=== PATIENT | female | born 1955 | race Caucasian/White ===

== ENCOUNTER 2018-09-07 06:23 | Inpatient (IN) ==
--- NOTE | 2018-08-24 12:26 | History & Physical Report ---
Date of Service August 24, 2018 Date of Surgery: 09/07/18 Assessment & Plan (1) Degenerative arthritis of knee, bilateral: Risks and benefits of procedure discussed in detail today, patient would like to proceed with bilateral TKAs @ [facility] as scheduled. will obtain medical clearance prior to surgery as well as obtain PATs at [facility]. Will place on Xarelto x 1 month post op, f/u 2 weeks post op for routine post-operative care and xray, sooner if having any problems. will make arrangements for HHPT vs rehab at the time of discharge. History of Present Illness Chief Complaint: bilateral knee pain Primary Care Provider: Austin White MD Ms Haynes is a 62 year old female who complains of bilateral knee pain, presents for pre-op for bilateral total knee replacements on 09-07-18. She states that the symptoms have been chronic non-traumatic. The symptoms occur constantly with intermittent worsening. Currently the patient states that the symptoms are moderate-severe. The pain is described as aching, discomforting and throbbing. The symptoms are aggravated by ascending stairs, descending stairs, daily activities, movement, walking, sleeping on the affected side, kneeling, first steps while awake and repetitive activities. Kristie states that the symptoms are relieved by no specific activity. She is also experiencing decreased mobility, crepitus, limping, joint pain, pain after activity and stiffness. The patient has had a previous x-ray and MRI. Prior NSAIDs include naproxen. She has been treated with Pt. has had Cortisone and Visco in the past on the right and left side equally. Pt. lives in 2 story [facility] style home with her . Pt. main living area is 1 floor with no need to ambulate stairs. Pt. is retired Allergies Allergy/AdvReac Type Severity Reaction Status Date / Time No Known Allergies Allergy Verified 08/17/18 13:38 Home Medications Home Medications Medication Instructions Recorded Confirmed Type aripiprazole [Abilify] 5 mg PO QAM 08/17/18 08/17/18 History bupropion HCl 300 mg PO QAM 08/17/18 08/17/18 History cholecalciferol (vitamin D3) 2,000 unit PO QAM 08/17/18 08/17/18 History [Vitamin D3] furosemide 40 mg PO QAM 08/17/18 08/17/18 History levothyroxine 50 mcg PO QAM 08/17/18 08/17/18 History naproxen sodium 440 mg PO QAM 08/17/18 08/17/18 History potassium chloride 10 meq PO BID 08/17/18 08/17/18 History sumatriptan succinate [Imitrex] 1 tab PO UD PRN 08/17/18 08/17/18 History venlafaxine [Effexor XR] 75 mg PO QAM 08/17/18 08/17/18 History Past Med/Surg History Medical History Anemia HX Depression MAJOR DEPRESSIVE DISORDER Hypothyroidism Migraine HX Osteoarthritis Raynaud disease Thoracic aortic aneurysm Surgical History H/O foot surgery BUNIONECTOMY R/L History of gastric bypass 2002 History of hysterectomy OVARIES REMAIN History of repair of rotator cuff RIGHT Social History Preferred Language: Iranian Communication Ability: Effective Drill Presser Required: No Beliefs That Will Affect Care: None Current Living Situation: Spouse and Family Other Information That Helps Us Care for You: No Feels Safe at Home: Yes Safety Concerns: Feels Safe At This Time Smoking Status: Former smoker Hx Alcohol Use: Yes (ON OCC) Hx Substance Use: No Review of Systems All systems reviewed & are unremarkable except as noted in HPI & below Constitutional: no fever, no chills and no sweats Respiratory: no cough and no dyspnea Cardiovascular: no chest pain, no dyspnea and no orthopnea Gastrointestinal: no nausea and no vomiting Musculoskeletal: as per Subjective / HPI Integumentary: no rash and no lesions Physical Exam Vital Signs (Past 24 Hours): Ht: 5ft 8inches Wt: 86kg BP: 122/76 HR: 72 Constitutional: WD/WN, vitals as above no acute distress Respiratory: normal respiratory effort, lungs clear to auscultation no respiratory distress, no labored breathing and does not use accessory muscles Cardiovascular: RRR, no murmur, no edema Gastrointestinal (Abdomen): normal bowel sounds, soft, nontender, no hepatosplenomegaly Musculoskeletal: Bilateral knee Physical exam Overall patient has neutral alignment bilaterally, there is no atrophy or ecchymosis noted, she does have +2 suprapatellar effusion in both of her knees, she has tenderness to both medial and lateral joint lines to her right knee, more lateral tenderess to both knees. negative patellar apprehension, she does have crepitation noted to both knees with active ROM. bilateral knees stable to valgus and varus stress, shahnaz negative, posterior drawer negative. Range of motion right knee 0/3/110, left knee 0/3/115. her lower extremities are neurovascularly intact, calf soft and non tender, DP pulse +2 bilaterally. Skin: no rashes, warm and dry Results & Data Diagnostic Findings Bilateral knee films from 08/06/18 showing advanced degenerative changes bilateral knees, greatest lateral compartments and patellofemoral joints, showing joint space narrowing, osteophyte formation and subchondral sclerosis. no acute bony pathology noted. no loose bodies.
--- NOTE | 2018-08-24 13:40 | Anesthesiology Consultation ---
Date of Service August 24, 2018 Assessment & Plan (1) Encounter for pre-operative examination: - Discussed B/L versus staged TKA with patient; patient wishes to proceed with B/L TKA. - PCP= 08/27/18= Possible ascending aorta enlargement on preop CXR. Noted by PCP, chest CT ordered. "Based on her condition today I do not see any contraindication to her anticipated surgery." Chest CT done 08/30/18 noting pulmonary nodule and mild acending thoracic ectasia- "neither findings will constitute any contraindication to her anticipated surgery and we can proceed as scheduled." Chart Review Chart Review: Patient seen in Pre Admission Testing Teaching & Discussion Pre-Anesthesia Teaching/Discussion Notes: Instructed NPO after midnight before surgery,except medications with 15 cc of water. Medication instructions provided according to the PAT guidelines. History Surgery Operation Date: 09/07/18 10:35 Proposed Procedures p Bilateral Total Knee Arthroplasty - Zay Nevarez DO Height/Weight Height: 5 ft 8 in Weight: 90.4 kg Allergies Allergy/AdvReac Type Severity Reaction Status Date / Time No Known Allergies Allergy Verified 08/17/18 13:38 Medications Home Medications Medication Instructions Recorded Confirmed Last Taken aripiprazole [Abilify] 5 mg PO QAM 08/17/18 08/17/18 Unknown bupropion HCl 300 mg PO QAM 08/17/18 08/17/18 Unknown cholecalciferol (vitamin D3) 2,000 unit PO QAM 08/17/18 08/17/18 Unknown [Vitamin D3] furosemide 40 mg PO QAM 08/17/18 08/17/18 Unknown levothyroxine 50 mcg PO QAM 08/17/18 08/17/18 Unknown naproxen sodium 440 mg PO QAM 08/17/18 08/17/18 Unknown potassium chloride 10 meq PO BID 08/17/18 08/17/18 Unknown sumatriptan succinate [Imitrex] 1 tab PO UD PRN 08/17/18 08/17/18 Unknown venlafaxine [Effexor XR] 75 mg PO QAM 08/17/18 08/17/18 Unknown Past Medical History Medical History Anemia Depression History of hypertension MEDS DISCONTINUED S/P GASTRIC BYPASS/WEIGHT LOSS Hypothyroidism Migraine Osteoarthritis Pulmonary nodule Raynaud disease Thoracic aortic aneurysm MILD ASCENDING THORACIC AORTA ECTASIA Past Surgical History Surgical History H/O foot surgery B/L BUNIONECTOMY History of gastric bypass 2001 S/P NET 70 POUND WEIGHT LOSS History of hysterectomy History of repair of rotator cuff RIGHT Past Anesthesia History No Hx of Anesthesia Complications and No Family Hx of Anesthesia Complications History of PONV No Motion Sickness Screening History of Motion Sickness: No Social History Smoking Status: Former smoker Do You Dip or Chew Tobacco: No Smoking End Date: QUIT 40 YEARS AGO; LIGHT USE IN 20'S Hx Alcohol Use: Yes (ON OCC) Alcohol type: wine alcohol intake frequency: a few times a month Hx Substance Use: No substance use type: does not use Exercise / Class Metabolic Activity II 4-5 Yardwork/Stairs/Walk up hill (DECREASED ACTIVITY IN SETTING OF INCREASING KNEE PAIN) Review of Systems Patient denies chest pain, shortness of breath, dyspnea on exertion, cough, wheezing, palpitations. Physical Exam Vital Signs VITALS BP 107/68 P 101 TEMP 98.8 SP02 96%RA RESP 20 PHYSICAL Full neck and c-spine range of motion. Full TMJ range of motion. TMD 3.5 finger breaths Mallampati Score 2 Dentition: partials on upper/lower Lungs: clear throughout to auscultation Cardiac: regular rate and rhythm, no murmurs noted Spine: normal Carotid arteries: negative bruit Extremities: no edema Testing Electrocardiogram Date: 10/30/17 SR at 64bpm. LAE. Chest X-Ray Date: 08/24/18 Possible enlargement of the ascending aorta. This would be better depicted with CT. Otherwise no acute cardiopulmonary disease (report sent to PCP for their review) Echocardiogram Date: 03/06/17 LVEF 55-60%. Mild MR/TR. Lipomatous septal hypertrophy. Grade I DD. Aortic root normal. Ascending aorta is normal at 3.8cm. Stress Test Date: 03/06/17 Type: nuclear No significant ischemia/infarction on stress EKG/ECHO. LVEF 72%. 87%MPHR. Other Testing Chest CT= 08/30/18= 3 mm right upper lobe pulmonary nodule. In a low risk patient, current recommendations indicate no need for further follow-up. Mild ectasia of the ascending thoracic aorta which measures 39 mm at the level of the main pulmonary artery Laboratory Results 08/24/18 14:04 08/24/18 14:04 Blood Type O Positive 08/24/18 14:04 Antibody Screen NEGATIVE 08/24/18 14:04 PT 10.7 Seconds (9.0-12.0) 08/24/18 14:04 INR 1.0 (0.9-1.1) 08/24/18 14:04 APTT 27.8 Seconds (21.0-31.0) 08/24/18 14:04 Urine Color Yellow 08/24/18 14:04 Urine Appearance Clear (Clear) 08/24/18 14:04 Urine pH 5.0 (4.5-7.5) 08/24/18 14:04 Ur Specific Jber 1.016 (1.000-1.030) 08/24/18 14:04 Urine Protein Negative (Negative) 08/24/18 14:04 Urine Glucose (UA) Negative (Negative) 08/24/18 14:04 Urine Ketones Negative (Negative) 08/24/18 14:04 Urine Nitrite Negative (Negative) 08/24/18 14:04 Ur Leukocyte Esterase Negative (Negative) 08/24/18 14:04 08/24/18 14:04 Urine Culture - Final Urine,Clean Catch More than three types of organisms present, all low counts mixed probable skin roseanna. No further identifications or sensitivities to follow.
--- NOTE | 2018-08-24 13:59 | PAT Medication Instructions ---
Medication Instructions Date of Service August 24, 2018 Home Medications aripiprazole [Abilify] 5 mg PO QAM bupropion HCl 300 mg PO QAM cholecalciferol (vitamin D3) 2,000 unit PO QAM furosemide 40 mg PO QAMn levothyroxine 50 mcg PO QAM naproxen sodium 440 mg PO QAM potassium chloride 10 meq PO BID sumatriptan succinate [Imitrex] 1 tab PO UD PRN venlafaxine [Effexor XR] 75 mg PO QAM ASK your surgeon for instructions naproxen sodium 440 mg PO QAM DO NOT take the morning of surgery cholecalciferol (vitamin D3) 2,000 unit PO QAM furosemide 40 mg PO QAMn potassium chloride 10 meq PO BID Take morning of surgery With a small sip of water, OTHERWISE NOTHING TO EAT OR DRINK AFTER MIDNIGHT: aripiprazole [Abilify] 5 mg PO QAM bupropion HCl 300 mg PO QAM levothyroxine 50 mcg PO QAM sumatriptan succinate [Imitrex] 1 tab PO UD PRN (if needed) venlafaxine [Effexor XR] 75 mg PO QAM Other Notes If you have any questions please call us at [phone] or [phone] or [phone] or [phone]
--- NOTE | 2018-08-24 14:26 | XRay Report ---
XR chest Pre-admission PA/Lat CLINICAL HISTORY: 62 years-old Female presenting with preoperative assessment. TECHNIQUE: PA and lateral views of the chest were obtained. COMPARISON: None. FINDINGS: Mild effacement of the retrosternal clear space may indicate enlargement of the ascending aorta. Card iomediastinal silhouette otherwise normal. Lungs and pleural spaces clear. Osseous structures normal. Cholecystectomy clips noted. IMPRESSION: 1. Possible enlargement of the ascending aorta. This would be better depicted with CT. Otherwise no acute cardiopulmonary disease. Electronically signed by: Gio Bridges M.D. 08/24/2018 2:24 PM
[2018-08-24 15:06] LABS: Basophils # (auto) 0.04 K/uL (0-0.2); Basophils % (auto) 0.5 %; Eosinophils # (auto) 0.14 K/uL (0-0.5); Eosinophils % (auto) 1.8 %; Hematocrit (blood only) 35.7 % (37-47); Hemoglobin 11.6 g/dL (12.0-16.0); Immature Granulocytes # (auto) 0.02 K/uL (0.00-0.02); Immature Granulocytes % (auto) 0.3 %; Lymphocytes # (auto) 2.52 K/uL (1.2-3.4); Lymphocytes % (auto) 32.3 %; Mean Corpuscular Hgb Conc 32.5 g/dL (32-36); Mean Corpuscular Volume 91.5 fL (80-100); Mean Platelet Volume 10.7 fL (7.4-10.4); Monocytes # (auto) 0.33 K/uL (0.11-0.59); Monocytes % (auto) 4.2 %; Neutrophils # (auto) 4.75 K/uL (1.4-6.5); Neutrophils % (auto) 60.9 %; Platelet Count 355 K/uL (130-400); RDW Coefficient of Variation 13.9 % (11.5-14.5)
[2018-08-24 15:08] LABS: Appearance Urine Clear (Clear); Bilirubin Urine Negative (Negative); Blood Urine Negative (Negative); Color Urine Yellow; Glucose Urine UA Negative (Negative); Ketones Urine Negative (Negative); Leukocyte Esterase Urine Negative (Negative); Nitrite Urine Negative (Negative); Protein Urine Negative (Negative); Specific Gravity Urine 1.016 (1.000-1.030); Urobilinogen Urine Negative (Negative)
[2018-08-24 15:13] LABS: BUN Creatinine Ratio 17.9 (10-20); Calcium 8.2 mg/dl (8.5-10.1); Creatinine Clr Calc Pharmacy 63.2 ml/min; Est GFR (African American) 62.8; Est GFR (Non-African American) 54.1; Potassium 3.9 mmol/L (3.5-5.1)
[2018-08-24 15:17] LABS: Partial Thromboplastin Time 27.8 Seconds (21.0-31.0); Prothrombin Time 10.7 Seconds (9.0-12.0)
[~2018-09-07 06:23] MED LIST: ACETAMINOPHEN 500 MG TAB PO SCH; CEFAZOLIN 2000MG 2,000 MG/15 ML SYR IV SCH; CeleBREX 200 MG CAP PO SCH; FAMOTIDINE 20 MG TAB PO SCH; GABAPENTIN 300 MG x 2 PO SCH; LR 15ML/HR IV SCH; LR 500ML BOLUS, THEN 15ML/HR IV SCH; METOCLOPRAMIDE HCL 10 MG TABLET PO SCH; ROPIVACAINE 0.5% HCL/PF 150 MG, BUPIVACAINE 0.5% MPF 30 ML, EPINEPHrine 30MG/30ML (OR U... INFIL SCH; TRANEXAMIC ACID 1,000 MG **IV Pre-op IV SCH; dexAMETHasone 4 MG TAB PO SCH
[2018-09-07] MEDS ORDERED: TRANEXAMIC ACID 1,000 MG **IV Intra-op IV SCH (06:30)
[2018-09-07] MEDS ORDERED: ROPIVACAINE 0.5% 5 MG/ML 30 ML VIAL ONE (06:33)
[2018-09-07] MEDS ORDERED: BUPIVACAINE 0.5 % 5 MG/1 ML PF 10ML VIAL ONE (06:33)
[2018-09-07] MEDS ORDERED: EPINEPHrine INJ 1 MG/ML AMP ONE (06:34)
[2018-09-07] MEDS ORDERED: POVIDONE-IODINE OP SOLN 30 ML BTL ONE (07:09)
[2018-09-07] MEDS ORDERED: ORTHO JOINT ANESTHETIC ONE (07:09)
[2018-09-07] MEDS ORDERED: BACITRACIN INJ 50,000 UNIT VIAL ONE (07:09)
--- NOTE | 2018-09-07 07:12 | History & Physical Bridge Note ---
Date of Service September 07, 2018 History & Physical Bridge Note I have examined the patient, reviewed the History & Physical and in the interval since the performance of the History & Physical I have noted the following changes of clinical significance: no changes noted
[2018-09-07] MEDS ORDERED: fentaNYL citrate 100 MCG/2 ML VIAL ONE (07:26)
[2018-09-07] MEDS ORDERED: MIDAZOLAM HCL 1 MG/ML 2ML VIAL ONE (07:26)
[2018-09-07] MEDS ORDERED: ATROPINE SULFATE 0.1 MG/ML 10ML SYR IV PRN (08:32)
[2018-09-07] MEDS ORDERED: ONDANSETRON INJ 2 MG/ML 2 ML VIAL IV PRN ×2 (08:32→13:05)
[2018-09-07] MEDS ORDERED: HYDROmorphone INJ 1 MG/ML SYRINGE IV PRN (08:32)
[2018-09-07] MEDS ORDERED: fentaNYL citrate 100 MCG/2 ML VIAL IV PRN (08:32)
[2018-09-07] MEDS ORDERED: ePHEDrine sulfate 50 MG/ML AMP IV PRN (08:32)
[2018-09-07] MEDS ORDERED: PROPOFOL IV EMULSION 10 MG/ML 20 ML VIAL IV ONE (08:55)
[2018-09-07] MEDS ORDERED: ONDANSETRON INJ 2 MG/ML 2 ML VIAL ONE (08:55)
[2018-09-07] MEDS ORDERED: LIDOCAINE HCL 2% 2 ML VIAL/AMP(20MG/ML) INFIL ONE (08:55)
--- NOTE | 2018-09-07 10:18 | Operative Report ---
Post Operative Report Pre & Post Diagnosis Operation Date: 09/07/18 08:35 Pre-Op Diagnosis: Unilateral Primary Osteoarthritis Right and Left Knee Post-Op Diagnosis: Unilateral Primary Osteoarthritis Right and Left Knee Procedure Operation Date: 09/07/18 08:35 Actual Procedures p Bilateral Total Knee Arthroplasty(Bilateral) utilizing journey to non-bloc total knee arthroplasty right size 5 femur 5 tibia 10 polyethylene 29 oval patella left size 5 femur 5 tibia 9 polyethylene 32 oval patella- Zay Nevarez DO Surgeon Zay Nevarez DO Grain Elevator [employer] Miguel JASON Estimated Blood Loss 10 (5 RIGHT, 5 LEFT) Findings Consistent with Post-Op Diagnosis Patient presents with bilateral knee DJD with valgus alignment of 45 degrees bilateral knees with bone to bone changes eburnated bone subchondral cystic changes marginal osteophytes involving bilateral knees is failed attempts at conservative management Specimens Bone and cartilage Drains Medium bore Hemovac Complications none Disposition Accompanied Patient To Recovery: No Disposition: Recovery Room Indications Patient presents as a very pleasant 62-year-old white female seen evaluate points of ongoing pain through to her bilateral knees been no response to conservative management times surgery the above findings were noted patient failed attempts of Visco supplementation corticosteroid injection bracing relative rest activity modification presents for bilateral total knee arthroplasty Description of Procedure After proper prepping and draping of the bilateral lower extremities, an anterior midline incision was made over the region of the extensor extensor mechanism of the left knee. After meticulous hemostasis was obtained and maintained in subcutaneous tissues a medial parapatellar incision was made The patella was subluxed lateralward the medial lateral gutter were cleaned from any hypertrophic synovitis and scar tissue of the distal femoral block was placed and the distal femoral osteotomy cut was made subsequently the chamfers anterior and posterior osteotomy cuts were made utilizing the 4-in-1 block the tibia was subsequently subluxed anteriorward medial and ateral meniscal remnants were excised in their entirety remnants of the anterior and posterior cruciate ligaments were excised in their entirety excellent exposure of the proximal tibia was obtained the tibial osteotomy guide was placed on the proximal tibial osteotomy cut was made once again the knee was irrigated with copious amounts of sterile saline solution the patella was subsequently everted lateralward thickened scar tissue around the patella was removed the patella was subsequently cut utilizing a freehand technique and was drilled prepared for final preparation and placement of patella socially flexion-extension gaps were checked and the equal and symmetric trials were placed to the appropriate femoral and tibial trials with poly-spacer being placed for equal flexion and extension gaps and full range of motion including extension to 0 and flexion to 140 the trial components after having been taken to recovery range of motion was subsequently removed meticulous hemostasis was obtained and maintained subsequently a knee block injection of joint cocktail including ropivacaine 0.5% 150 mg. Bupivacaine 0.5% epinephrine 1-200,030 mL's toradol 30 mg dexamethasone 4 mg ketamine 10 mg clonidine 100 micrograms normal saline solution 30 mg was infiltrated into the soft tissues of the posterior knee medial lateral gutters and periosteal synovium special attention was paid to protect neurovascular structures at all times subsequently trial components having been removed the knee was irrigated with sterile saline solution. debris was removed the proximal tibia was subsequently prepared and was made ready for the placement of the tibial component tibial component was also cemented and tamped into position the femoral component was subsequently placed and cemented in the position the patellar component was subsequently cemented in position because hemostasis once again obtained and maintained wound having been thoroughly irrigated with debridement and debridement lavage was performed as well as a medial parapatellar incision closed with #1 Vicryl in interrupted fashion subcutaneous was closed with #2 Vicryl skin was closed with skin clips Next, an anterior midline incision was made over the region of the extensor extensor mechanism of the right knee. After meticulous hemostasis was obtained and maintained in subcutaneous tissues a medial parapatellar incision was made The patella was subluxed lateralward the medial lateral gutter were cleaned from any hypertrophic synovitis and scar tissue of the distal femoral block was placed and the distal femoral osteotomy cut was made subsequently the chamfers anterior and posterior osteotomy cuts were made utilizing the 4-in-1 block the tibia was subsequently subluxed anteriorward medial and ateral meniscal remnants were excised in their entirety remnants of the anterior and posterior cruciate ligaments were excised in their entirety excellent exposure of the proximal tibia was obtained the tibial osteotomy guide was placed on the proximal tibial osteotomy cut was made once again the knee was irrigated with copious amounts of sterile saline solution the patella was subsequently everted lateralward thickened scar tissue around the patella was removed the patella was subsequently cut utilizing a freehand technique and was drilled prepared for final preparation and placement of patella socially flexion-extension gaps were checked and the equal and symmetric trials were placed to the appropriate femoral and tibial trials with poly-spacer being placed for equal flexion and extension gaps and full range of motion including extension to 0 and flexion to 140 the trial components after having been taken to recovery range of motion was subsequently removed meticulous hemostasis was obtained and maintained subsequently a knee block injection of joint cocktail including ropivacaine 0.5% 150 mg. Bupivacaine 0.5% epinephrine 1-200,030 mL's toradol 30 mg dexamethasone 4 mg ketamine 10 mg clonidine 100 micrograms normal saline solution 30 mg was infiltrated into the soft tissues of the posterior knee medial lateral gutters and periosteal synovium special attention was paid to protect neurovascular structures at all times subsequently trial components having been removed the knee was irrigated with sterile saline solution. debris was removed the proximal tibia was subsequently prepared and was made ready for the placement of the tibial component tibial component was also cemented and tamped into position the femoral component was subsequently placed and cemented in the position the patellar component was subsequently cemented in position because hemostasis once again obtained and maintained wound having been thoroughly irrigated with debridement and debridement lavage was performed as well as a medial parapatellar incision closed with #1 Vicryl in interrupted fashion subcutaneous was closed with #2 Vicryl skin was closed with skin clips.. PA-C was necessary for prepping and drapping as well as wound closure of deep fascia Sub cutaneous tissue and skin and was necessary for the case. A sterile compressive dressings were placed, patient was taken to recovery in stable condition of report dictated by Roque I attest to the content of the Intraoperative Record and any orders documented therein. Any exceptions are noted below. I attest to the content of the Intraoperative Record and any orders documented therein. Any exceptions are noted below.
--- NOTE | 2018-09-07 11:27 | XRay Report ---
LEFT KNEE 2 VIEWS History: Left total knee arthroplasty. Degenerative arthritis. Postop. FINDINGS: The patient is status post a left total knee arthroplasty. The hardware is intact. No fract ure or dislocation. Skin vee and surgical drains are in place. IMPRESSION: Left total knee arthroplasty. No evidence for hardware complication. Electronically signed by: Varun Contreras M.D. 09/07/2018 11:26 AM
--- NOTE | 2018-09-07 11:27 | XRay Report ---
RIGHT KNEE 2 VIEWS History: Right total knee arthroplasty. Degenerative arthritis. Postop. FINDINGS: The patient is status post a right total knee arthroplasty. The hardware is intact. No frac ture or dislocation. Skin vee and surgical drains are in place. IMPRESSION: Right total knee arthroplasty. No evidence for hardware complication. Electronically signed by: Varun Contreras M.D. 09/07/2018 11:25 AM
--- NOTE | 2018-09-07 12:39 | Anesthesiology Progress Note ---
Date of Service September 07, 2018 Anesthesia Post Procedure Vital Signs Vital Signs: Temp Pulse Pulse Pulse Resp BP BP 09/07/18 12:20 88 13 119/77 09/07/18 12:16 85 16 111/74 09/07/18 12:15 88 93 H 12 111/74 09/07/18 12:11 86 16 125/78 09/07/18 12:10 88 15 09/07/18 12:06 89 16 123/77 09/07/18 12:05 88 15 09/07/18 12:01 87 13 125/79 09/07/18 12:00 88 86 11 L 125/79 09/07/18 11:56 88 14 127/76 09/07/18 11:55 87 14 09/07/18 11:51 87 16 125/78 09/07/18 11:50 87 12 09/07/18 11:46 86 15 124/75 09/07/18 11:45 91 H 12 09/07/18 11:40 87 11 L 128/80 09/07/18 11:36 86 14 125/81 09/07/18 11:35 86 16 09/07/18 11:30 87 13 127/79 09/07/18 11:28 36.5 C 85 16 127/79 09/07/18 11:26 88 18 130/80 09/07/18 11:25 85 15 09/07/18 11:22 87 13 09/07/18 11:21 91 H 15 128/79 09/07/18 11:20 88 16 09/07/18 11:16 91 H 18 126/79 09/07/18 11:15 87 19 09/07/18 11:11 89 14 133/86 09/07/18 11:10 94 H 16 09/07/18 11:06 90 14 134/82 09/07/18 11:05 94 H 14 09/07/18 11:01 97 H 23 127/85 09/07/18 11:00 95 H 20 09/07/18 10:55 36.4 C L 99 H 96 H 14 133/82 133/82 09/07/18 06:49 36.9 C 86 18 149/109 H Pulse Ox 09/07/18 12:20 97 09/07/18 12:16 98 09/07/18 12:15 98 09/07/18 12:11 98 03/19/19 12:10 98 09/07/18 12:06 98 09/07/18 12:05 98 09/07/18 12:01 96 09/07/18 12:00 96 09/07/18 11:56 95 09/07/18 11:55 98 09/07/18 11:51 97 09/07/18 11:50 98 09/07/18 11:46 93 09/07/18 11:45 95 09/07/18 11:40 96 09/07/18 11:36 98 09/07/18 11:35 98 09/07/18 11:30 98 09/07/18 11:28 98 09/07/18 11:26 96 09/07/18 11:25 97 09/07/18 11:22 87 L 09/07/18 11:21 94 09/07/18 11:20 94 09/07/18 11:16 97 09/07/18 11:15 95 09/07/18 11:11 96 09/07/18 11:10 95 09/07/18 11:06 96 09/07/18 11:05 96 09/07/18 11:01 97 09/07/18 11:00 97 09/07/18 10:55 96 09/07/18 06:49 93 Pain Intensity Bilateral Knee: Pain Intensity: 4 Notes Mental Status: alert / awake / arousable and participated in evaluation Patient Amnestic to Procedure: Yes Nausea / Vomiting: adequately controlled Pain: adequately controlled Airway Patency, RR, SpO2: stable & adequate BP & HR: stable & adequate Hydration State: stable & adequate Neuraxial Anesthesia: was administered and sensory block is resolving Anesthetic Complications: no major complications apparent and Pt Satisfied with anesthetic care
[2018-09-07] MEDS ORDERED: NALOXONE HCL 0.4 MG/1 ML VIAL/CARP IV PRN (13:05)
[2018-09-07] MEDS ORDERED: SUMAtriptan succinate 100 MG TAB PO PRN (13:05)
[2018-09-07] MEDS ORDERED: BISACODYL 10 MG SUPP PR PRN (13:05)
[2018-09-07] MEDS ORDERED: METOCLOPRAMIDE HCL INJ 5 MG/ML 2 ML VIAL IV PRN (13:05)
[2018-09-07] MEDS: ACETAMINOPHEN 500 MG TAB PO SCH ×2 (15:30→21:47)
[2018-09-07] MEDS: OXYCODONE HCL IR 5 MG TAB (IMMEDIATE RELEASE) PO PRN ×3 (16:57→21:46)
[2018-09-07] MEDS: CEFAZOLIN 2000MG 2,000 MG/15 ML SYR IV SCH ×2 (16:58→23:31)
[2018-09-07] MEDS: FERROUS GLUCONATE 324 MG TAB PO SCH (16:59)
[2018-09-07] MEDS: SODIUM CHLORIDE 0.9% 1000ML 1,000 ML IV SCH (17:01)
[2018-09-07] MEDS: DOCUSATE SODIUM 100 MG CAP PO SCH (21:46)
[2018-09-07] MEDS: POTASSIUM CHLORIDE 10 MEQ TABCR PO SCH (21:46)
[2018-09-07] MEDS: SENNA 8.6 MG TAB PO SCH (21:46)
[2018-09-07] MEDS: HYDROmorphone INJ 0.5 MG/0.5 ML SYR IV PRN (23:41)
[2018-09-08] MEDS: SODIUM CHLORIDE 0.9% 1000ML 1,000 ML IV SCH ×3 (02:00→21:40)
[2018-09-08] MEDS: OXYCODONE HCL IR 5 MG TAB (IMMEDIATE RELEASE) PO PRN ×5 (03:17→20:23)
[2018-09-08] MEDS: ACETAMINOPHEN 500 MG TAB PO SCH ×3 (05:11→21:40)
[2018-09-08] MEDS: LEVOTHYROXINE SODIUM 50 MCG TABLET PO SCH (05:11)
[2018-09-08] MEDS: HYDROmorphone INJ 0.5 MG/0.5 ML SYR IV PRN ×3 (05:12→17:38)
[2018-09-08 06:07] LABS: Hematocrit (blood only) 27.1 % (37-47); Hemoglobin 8.8 g/dL (12.0-16.0); Mean Corpuscular Hgb Conc 32.5 g/dL (32-36); Mean Corpuscular Volume 91.2 fL (80-100); Platelet Count 226 K/uL (130-400); RDW Coefficient of Variation 14.5 % (11.5-14.5); RDW Standard Deviation 48.4 fL (36.4-46.3); Red Blood Count 2.97 M/uL (4.2-5.4); White Blood Count 10.33 K/uL (4.8-10.8)
[2018-09-08 06:42] LABS: BUN Creatinine Ratio 19.9 (10-20); Calcium 7.8 mg/dl (8.5-10.1); Creatinine Clr Calc Pharmacy 86.6 ml/min; Est GFR (African American) 92.2; Est GFR (Non-African American) 79.6; Potassium 4.4 mmol/L (3.5-5.1)
[2018-09-08] MEDS: FERROUS GLUCONATE 324 MG TAB PO SCH ×2 (07:44→16:06)
--- NOTE | 2018-09-08 08:28 | Anesthesiology Progress Note ---
Date of Service September 08, 2018 Anesthesia Post Procedure Vital Signs Vital Signs: Temp Pulse Pulse Pulse Resp BP BP 09/08/18 07:27 36.4 C L 90 18 127/76 09/08/18 03:13 36.7 C 76 16 120/72 09/07/18 23:06 36.8 C 82 16 99/62 L 09/07/18 19:00 37.1 C 91 H 16 104/66 09/07/18 15:39 36.8 C 97 H 16 117/77 09/07/18 14:38 108 H 18 123/81 09/07/18 13:41 96 H 16 128/79 09/07/18 13:13 93 H 16 115/78 09/07/18 12:40 37 C 89 15 121/77 09/07/18 12:20 88 13 119/77 09/07/18 12:16 85 16 111/74 09/07/18 12:15 88 93 H 12 111/74 09/07/18 12:11 86 16 125/78 09/07/18 12:10 88 15 09/07/18 12:06 89 16 123/77 09/07/18 12:05 88 15 09/07/18 12:01 87 13 125/79 09/07/18 12:00 88 86 11 L 125/79 09/07/18 11:56 88 14 127/76 09/07/18 11:55 87 14 09/07/18 11:51 87 16 125/78 09/07/18 11:50 87 12 09/07/18 11:46 86 15 124/75 09/07/18 11:45 91 H 12 09/07/18 11:40 87 11 L 128/80 09/07/18 11:36 86 14 125/81 09/07/18 11:35 86 16 09/07/18 11:30 87 13 127/79 09/07/18 11:28 36.5 C 85 16 127/79 09/07/18 11:26 88 18 130/80 09/07/18 11:25 85 15 09/07/18 11:22 87 13 09/07/18 11:21 91 H 15 128/79 09/07/18 11:20 88 16 09/07/18 11:16 91 H 18 126/79 09/07/18 11:15 87 19 09/07/18 11:11 89 14 133/86 09/07/18 11:10 94 H 16 09/07/18 11:06 90 14 134/82 09/07/18 11:05 94 H 14 09/07/18 11:01 97 H 23 127/85 09/07/18 11:00 95 H 20 09/07/18 10:55 36.4 C L 99 H 96 H 14 133/82 133/82 Pulse Ox 09/08/18 07:27 98 09/08/18 03:13 95 09/07/18 23:06 96 09/07/18 19:00 93 09/07/18 15:39 94 09/07/18 14:38 96 09/07/18 13:41 98 09/07/18 13:13 98 09/07/18 12:40 97 09/07/18 12:20 97 09/07/18 12:16 98 09/07/18 12:15 98 09/07/18 12:11 98 09/07/18 12:10 98 09/07/18 12:06 98 09/07/18 12:05 98 09/07/18 12:01 96 09/07/18 12:00 96 09/07/18 11:56 95 09/07/18 11:55 98 09/07/18 11:51 97 09/07/18 11:50 98 09/07/18 11:46 93 09/07/18 11:45 95 09/07/18 11:40 96 09/07/18 11:36 98 09/07/18 11:35 98 09/07/18 11:30 98 09/07/18 11:28 98 09/07/18 11:26 96 09/07/18 11:25 97 09/07/18 11:22 87 L 09/07/18 11:21 94 09/07/18 11:20 94 09/07/18 11:16 97 09/07/18 11:15 95 09/07/18 11:11 96 09/07/18 11:10 95 09/07/18 11:06 96 09/07/18 11:05 96 09/07/18 11:01 97 09/07/18 11:00 97 09/07/18 10:55 96 Pain Intensity Bilateral Knee: Pain Intensity: 6 Notes Mental Status: alert / awake / arousable Patient Amnestic to Procedure: Yes Nausea / Vomiting: adequately controlled Pain: adequately controlled Airway Patency, RR, SpO2: stable & adequate BP & HR: stable & adequate Hydration State: stable & adequate Neuraxial Anesthesia: was administered and sensory block resolved Anesthetic Complications: no major complications apparent
[2018-09-08] MEDS: DOCUSATE SODIUM 100 MG CAP PO SCH ×2 (08:59→20:23)
[2018-09-08] MEDS: POTASSIUM CHLORIDE 10 MEQ TABCR PO SCH ×2 (08:59→20:23)
[2018-09-08] MEDS: MULTIVITAMIN TAB PO SCH (08:59)
[2018-09-08] MEDS: ARIPiprazole 5 MG TAB PO SCH (09:00)
[2018-09-08] MEDS: BuPROPion XL 300 MG TABCR PO SCH (09:00)
[2018-09-08] MEDS: VENLAFAXINE HCL XR 75 MG CAPXR PO SCH (09:00)
[2018-09-08] MEDS: RIVAROXABAN 10 MG TABLET PO SCH (09:01)
[2018-09-08] MEDS: KETOROLAC TROMETHAMINE 15 MG/ML VIAL IV SCH ×3 (10:32→22:05)
[2018-09-08] MEDS ORDERED: Nursing to Pharmacy Communication ONE (11:35)
--- NOTE | 2018-09-08 11:36 | Orthopedic Progress Note ---
Date of Service September 08, 2018 Assessment & Plan (1) Status post total bilateral knee replacement: POD #1 s/p Bilateral TKA pt/ot dvt proph with [facility]/scd/xarelto plan for poss d/c to inpatient rehab when stable LH- will continue fluids, recheck H/H at 1600 today, acute blood loss anemia, d iscussed poss transfusion if she remains symptomatic will order dose of Toradol as well to supplement the oxy and IV dilaudid. Subjective POD#1 s/p bilateral TKA denies CP/SOB has had a bit of lightheadedness increased pain this am, R>L denies Fever/Chills denies N/V Physical Exam Vital Signs (Past 24 Hours): Last Vital Signs Temp 36.7 C 09/08/18 10:56 Pulse 79 09/08/18 10:56 Resp 18 09/08/18 10:56 BP 100/64 09/08/18 10:56 Pulse Ox 95 09/08/18 10:56 Constitutional: WD/WN, vitals as above no acute distress Musculoskeletal: Bilateral Lower extremities: NVDI, calfs SNT, negative yoel signs both legs. DP palpable, able to wiggle toes/ankle movement without difficulty. dressings are clean dry and intact. Vital Signs Temp 36.7 C 09/08/18 10:56 Pulse 79 09/08/18 10:56 Resp 18 09/08/18 10:56 BP 100/64 09/08/18 10:56 Pulse Ox 95 09/08/18 10:56 Intake & Output 09/07/18 09/08/18 09/08/18 18:59 06:59 18:59 Intake Total 2260 / 3558.333 1298.333 / 3558.33 3 Output Total 1700 / 2700 1000 / 2700 500 / 500 Balance 560 / 858.333 298.333 / 858.333 -500 / -500 Weight 89.9 kg Intake: IV 710 / 1608.333 898.333 / 1608.333 Lr 1,000 ml @ 15 mls/hr IV . 600 / 600 Q24H MITZY Rx#:[id number] Nss 1000ML 1,0 00 ml @ 100 mls/ 898.333 / 898.333 hr IV .Q10H SC H Rx#:[id number] Cyklokapron 1, 000 mg In Sodium 110 / 110 Chloride 100 m l @ 660 mls/hr IV TODAY@0600 [facility] Rx#:[id number] IV Perioperative 850 / 850 Oral 700 / 1100 400 / 1100 Output: Urine 1500 / 1750 250 / 1750 500 / 500 Estimated Blood Loss 10 / 10 Drain Output 190 / 940 750 / 940 Left Knee Hemo vac #1 110 / 485 375 / 485 Right Knee Hem ovac #2 80 / 455 375 / 455 Results & Data Laboratory Results Laboratory Results WBC 10.33 K/uL (4.8-10.8) 09/08/18 05:52 RBC 2.97 M/uL (4.2-5.4) L 09/08/18 05:52 Hgb 8.8 g/dL (12.0-16.0) L 09/08/18 05:52 Hct 27.1 % (37-47) L 09/08/18 05:52 MCV 91.2 fL (80-100) 09/08/18 05:52 MCH 29.6 pg (25-34) 09/08/18 05:52 MCHC 32.5 g/dL (32-36) 09/08/18 05:52 RDW Std Deviation 48.4 fL (36.4-46.3) H 09/08/18 05:52 RDW Coeff of Vikas 14.5 % (11.5-14.5) 09/08/18 05:52 Plt Count 226 K/uL (130-400) 09/08/18 05:52 MPV 10.0 fL (7.4-10.4) 09/08/18 05:52 Immature Gran % (Auto) 0.3 % 08/24/18 14:04 Neut % (Auto) 60.9 % 08/24/18 14:04 Lymph % (Auto) 32.3 % 08/24/18 14:04 [place] % (Auto) 4.2 % 08/24/18 14:04 Eos % (Auto) 1.8 % 08/24/18 14:04 Baso % (Auto) 0.5 % 08/24/18 14:04 Immature Gran # (Auto) 0.02 K/uL (0.00-0.02) 08/24/18 14:04 Neut # (Auto) 4.75 K/uL (1.4-6.5) 08/24/18 14:04 Lymph # (Auto) 2.52 K/uL (1.2-3.4) 08/24/18 14:04 [place] # (Auto) 0.33 K/uL (0.11-0.59) 08/24/18 14:04 Eos # (Auto) 0.14 K/uL (0-0.5) 08/24/18 14:04 Baso # (Auto) 0.04 K/uL (0-0.2) 08/24/18 14:04 PT 10.7 Seconds (9.0-12.0) 08/24/18 14:04 INR 1.0 (0.9-1.1) 08/24/18 14:04 APTT 27.8 Seconds (21.0-31.0) 08/24/18 14:04 PTT Ratio 1.0 08/24/18 14:04 Sodium 138 mmol/L (136-145) 09/08/18 05:52 Potassium 4.4 mmol/L (3.5-5.1) 09/08/18 05:52 Chloride 105 mmol/L (98-107) 09/08/18 05:52 Carbon Dioxide 29 mmol/L (21-32) 09/08/18 05:52 Anion Gap 4.0 (3-11) 09/08/18 05:52 BUN 16 mg/dl (7-18) 09/08/18 05:52 Creatinine 0.80 mg/dl (0.6-1.2) 09/08/18 05:52 Est Cr Clr Drug Dosing 86.6 ml/min 09/08/18 05:52 Est GFR ( Amer) 92.2 09/08/18 05:52 Est GFR (Non-Af Amer) 79.6 09/08/18 05:52 BUN/Creatinine Ratio 19.9 (10-20) 09/08/18 05:52 Glucose 117 mg/dl (70-99) H 09/08/18 05:52 POC Glucose 93 (70-99) 09/07/18 07:45 Calcium 7.8 mg/dl (8.5-10.1) L 09/08/18 05:52 Urine Color Yellow 08/24/18 14:04 Urine Appearance Clear (Clear) 08/24/18 14:04 Urine pH 5.0 (4.5-7.5) 08/24/18 14:04 Ur Specific [place] 1.016 (1.000-1.030) 08/24/18 14:04 Urine Protein Negative (Negative) 08/24/18 14:04 Urine Glucose (UA) Negative (Negative) 08/24/18 14:04 Urine Ketones Negative (Negative) 08/24/18 14:04 Urine Blood Negative (Negative) 08/24/18 14:04 Urine Nitrite Negative (Negative) 08/24/18 14:04 Urine Bilirubin Negative (Negative) 08/24/18 14:04 Urine Urobilinogen Negative (Negative) 08/24/18 14:04 Ur Leukocyte Esterase Negative (Negative) 08/24/18 14:04 Blood Type O Positive 08/24/18 14:04 Antibody Screen NEGATIVE 08/24/18 14:04 Diagnostic Findings Bilateral KNEE 2 VIEWS status post bilateral total knee arthroplasty. The hardware is intact. No fracture or dislocation. Skin vee and surgical drains are in place. IMPRESSION: bilateral total knee arthroplasty. No evidence for hardware complication.
[2018-09-08] MEDS: SENNA 8.6 MG TAB PO SCH (20:23)
[2018-09-09] MEDS: OXYCODONE HCL IR 5 MG TAB (IMMEDIATE RELEASE) PO PRN ×6 (00:19→22:31)
[2018-09-09] MEDS: KETOROLAC TROMETHAMINE 15 MG/ML VIAL IV SCH (04:01)
[2018-09-09] MEDS: LEVOTHYROXINE SODIUM 50 MCG TABLET PO SCH (05:31)
[2018-09-09] MEDS: ACETAMINOPHEN 500 MG TAB PO SCH ×3 (05:32→21:37)
[2018-09-09 06:08] LABS: Basophils # (auto) 0.02 K/uL (0-0.2); Basophils % (auto) 0.2 %; Eosinophils # (auto) 0.23 K/uL (0-0.5); Eosinophils % (auto) 2.4 %; Hematocrit (blood only) 24.9 % (37-47); Hemoglobin 8.2 g/dL (12.0-16.0); Immature Granulocytes # (auto) 0.04 K/uL (0.00-0.02); Immature Granulocytes % (auto) 0.4 %; Lymphocytes # (auto) 1.88 K/uL (1.2-3.4); Mean Corpuscular Hgb Conc 32.9 g/dL (32-36); Mean Corpuscular Volume 91.9 fL (80-100); Monocytes # (auto) 1.08 K/uL (0.11-0.59); Monocytes % (auto) 11.5 %; Neutrophils # (auto) 6.16 K/uL (1.4-6.5); Neutrophils % (auto) 65.5 %; Platelet Count 216 K/uL (130-400); RDW Coefficient of Variation 14.7 % (11.5-14.5); Red Blood Count 2.71 M/uL (4.2-5.4); White Blood Count 9.41 K/uL (4.8-10.8)
[2018-09-09 06:28] LABS: RBC Morphology Unremarkable
[2018-09-09] MEDS: SODIUM CHLORIDE 0.9% 1000ML 1,000 ML IV SCH ×2 (07:16→17:14)
--- NOTE | 2018-09-09 08:02 | Orthopedic Progress Note ---
Date of Service September 09, 2018 Assessment & Plan (1) Status post total bilateral knee replacement: POD #2 s/p Bilateral TKA pt/ot dvt proph with [facility]/scd/xarelto plan for poss d/c to inpatient rehab when stable, awaiting approval to Rehab in [place] Lightheadedness has resolved, will cont to observe. Subjective POD#2 s/p bilateral TKA denies CP/SOB has had a bit of lightheadedness yesterday but states much improved today, no episodes thus far this morning. denies Fever/Chills denies N/V Musculoskeletal: as per Subjective / HPI Physical Exam Vital Signs (Past 24 Hours): Last Vital Signs Temp 36.8 C 09/09/18 07:04 Pulse 81 09/09/18 07:04 Resp 16 09/09/18 07:04 BP 116/74 09/09/18 07:04 Pulse Ox 93 09/09/18 07:04 Constitutional: WD/WN, vitals as above no acute distress Musculoskeletal: bilateral legs: NVDI, calf SNT, DP palpable, able to wiggle toes/ankle movement without difficulty. silverlon dressing clean dry and intact. expected post-operative bruising noted. negative yoel signs Skin: no rashes, warm and dry no rashes Results & Data Laboratory Results Laboratory Results WBC 9.41 K/uL (4.8-10.8) 09/09/18 05:48 RBC 2.71 M/uL (4.2-5.4) L 09/09/18 05:48 Hgb 8.2 g/dL (12.0-16.0) L 09/09/18 05:48 Hct 24.9 % (37-47) L 09/09/18 05:48 MCV 91.9 fL (80-100) 09/09/18 05:48 MCH 30.3 pg (25-34) 09/09/18 05:48 MCHC 32.9 g/dL (32-36) 09/09/18 05:48 RDW Std Deviation 49.0 fL (36.4-46.3) H 09/09/18 05:48 RDW Coeff of Vikas 14.7 % (11.5-14.5) H 09/09/18 05:48 Plt Count 216 K/uL (130-400) 09/09/18 05:48 MPV 10.0 fL (7.4-10.4) 09/09/18 05:48 Immature Gran % (Auto) 0.4 % 09/09/18 05:48 Neut % (Auto) 65.5 % 09/09/18 05:48 Lymph % (Auto) 20.0 % 09/09/18 05:48 [place] % (Auto) 11.5 % 09/09/18 05:48 Eos % (Auto) 2.4 % 09/09/18 05:48 Baso % (Auto) 0.2 % 09/09/18 05:48 Immature Gran # (Auto) 0.04 K/uL (0.00-0.02) H 09/09/18 05:48 Neut # (Auto) 6.16 K/uL (1.4-6.5) 09/09/18 05:48 Lymph # (Auto) 1.88 K/uL (1.2-3.4) 09/09/18 05:48 [place] # (Auto) 1.08 K/uL (0.11-0.59) H 09/09/18 05:48 Eos # (Auto) 0.23 K/uL (0-0.5) 09/09/18 05:48 Baso # (Auto) 0.02 K/uL (0-0.2) 09/09/18 05:48 RBC Morphology Unremarkable 09/09/18 05:48 PT 10.7 Seconds (9.0-12.0) 08/24/18 14:04 INR 1.0 (0.9-1.1) 08/24/18 14:04 APTT 27.8 Seconds (21.0-31.0) 08/24/18 14:04 PTT Ratio 1.0 08/24/18 14:04 Sodium 138 mmol/L (136-145) 09/08/18 05:52 Potassium 4.4 mmol/L (3.5-5.1) 09/08/18 05:52 Chloride 105 mmol/L (98-107) 09/08/18 05:52 Carbon Dioxide 29 mmol/L (21-32) 09/08/18 05:52 Anion Gap 4.0 (3-11) 09/08/18 05:52 BUN 16 mg/dl (7-18) 09/08/18 05:52 Creatinine 0.80 mg/dl (0.6-1.2) 09/08/18 05:52 Est Cr Clr Drug Dosing 86.6 ml/min 09/08/18 05:52 Est GFR ( Amer) 92.2 09/08/18 05:52 Est GFR (Non-Af Amer) 79.6 09/08/18 05:52 BUN/Creatinine Ratio 19.9 (10-20) 09/08/18 05:52 Glucose 117 mg/dl (70-99) H 09/08/18 05:52 POC Glucose 93 (70-99) 09/07/18 07:45 Calcium 7.8 mg/dl (8.5-10.1) L 09/08/18 05:52 Urine Color Yellow 08/24/18 14:04 Urine Appearance Clear (Clear) 08/24/18 14:04 Urine pH 5.0 (4.5-7.5) 08/24/18 14:04 Ur Specific [place] 1.016 (1.000-1.030) 08/24/18 14:04 Urine Protein Negative (Negative) 08/24/18 14:04 Urine Glucose (UA) Negative (Negative) 08/24/18 14:04 Urine Ketones Negative (Negative) 08/24/18 14:04 Urine Blood Negative (Negative) 08/24/18 14:04 Urine Nitrite Negative (Negative) 08/24/18 14:04 Urine Bilirubin Negative (Negative) 08/24/18 14:04 Urine Urobilinogen Negative (Negative) 08/24/18 14:04 Ur Leukocyte Esterase Negative (Negative) 08/24/18 14:04 Blood Type O Positive 08/24/18 14:04 Antibody Screen NEGATIVE 08/24/18 14:04
[2018-09-09] MEDS: VENLAFAXINE HCL XR 75 MG CAPXR PO SCH (08:31)
[2018-09-09] MEDS: FERROUS GLUCONATE 324 MG TAB PO SCH ×2 (08:31→17:14)
[2018-09-09] MEDS: MULTIVITAMIN TAB PO SCH (08:31)
[2018-09-09] MEDS: DOCUSATE SODIUM 100 MG CAP PO SCH ×2 (08:31→20:43)
[2018-09-09] MEDS: ARIPiprazole 5 MG TAB PO SCH (08:32)
[2018-09-09] MEDS: RIVAROXABAN 10 MG TABLET PO SCH (08:32)
[2018-09-09] MEDS: POTASSIUM CHLORIDE 10 MEQ TABCR PO SCH ×2 (08:32→20:43)
[2018-09-09] MEDS: BuPROPion XL 300 MG TABCR PO SCH (08:32)
[2018-09-09] MEDS: HYDROmorphone INJ 0.5 MG/0.5 ML SYR IV PRN ×4 (10:20→23:38)
[2018-09-09] MEDS: SENNA 8.6 MG TAB PO SCH (20:43)
[2018-09-10] MEDS: SODIUM CHLORIDE 0.9% 1000ML 1,000 ML IV SCH ×3 (02:22→23:31)
[2018-09-10] MEDS: OXYCODONE HCL IR 5 MG TAB (IMMEDIATE RELEASE) PO PRN ×6 (02:25→23:31)
[2018-09-10 05:48] LABS: Basophils # (auto) 0.02 K/uL (0-0.2); Basophils % (auto) 0.2 %; Eosinophils # (auto) 0.18 K/uL (0-0.5); Eosinophils % (auto) 1.8 %; Hematocrit (blood only) 23.1 % (37-47); Hemoglobin 7.5 g/dL (12.0-16.0); Immature Granulocytes # (auto) 0.05 K/uL (0.00-0.02); Immature Granulocytes % (auto) 0.5 %; Lymphocytes # (auto) 1.89 K/uL (1.2-3.4); Lymphocytes % (auto) 19.1 %; Mean Corpuscular Hgb Conc 32.5 g/dL (32-36); Mean Corpuscular Volume 91.7 fL (80-100); Monocytes # (auto) 1.06 K/uL (0.11-0.59); Monocytes % (auto) 10.7 %; Neutrophils # (auto) 6.67 K/uL (1.4-6.5); Neutrophils % (auto) 67.7 %; Platelet Count 210 K/uL (130-400); RDW Coefficient of Variation 14.8 % (11.5-14.5); Red Blood Count 2.52 M/uL (4.2-5.4); White Blood Count 9.87 K/uL (4.8-10.8)
[2018-09-10] MEDS: LEVOTHYROXINE SODIUM 50 MCG TABLET PO SCH (05:52)
[2018-09-10] MEDS: ACETAMINOPHEN 500 MG TAB PO SCH ×3 (05:52→21:41)
[2018-09-10 06:29] LABS: RBC Morphology Unremarkable
[2018-09-10] MEDS ORDERED: SODIUM CHLORIDE 0.9% 250 ML IV PRN (07:01)
--- NOTE | 2018-09-10 07:12 | Orthopedic Progress Note ---
Date of Service September 10, 2018 Assessment & Plan (1) Status post total bilateral knee replacement: POD #3 s/p Bilateral TKA pt/ot dvt proph with [facility]/scd/xarelto awaiting approval to rehab, will hold transfer until after transfusion and recheck H/H this afternoon Acute blood loss anemia: Lightheadedness returned, also feeling fatigued. will transfuse 1 unit PRBCs, recheck H/H later today Subjective POD #3 s/p bilateral TKA denies CP/SOB feeling fatigued/tired today denies Fever/Chills denies N/V Musculoskeletal: as per Subjective / HPI Physical Exam 2 Vital Signs (Past 24 Hours): Last Vital Signs Temp 37.1 C 09/09/18 23:06 Pulse 97 H 09/09/18 23:06 Resp 14 09/09/18 23:06 BP 115/75 09/09/18 23:06 Pulse Ox 96 09/10/18 05:53 Constitutional: WD/WN, vitals as above Musculoskeletal: Bilateral knees: NVDI, calfs SNT, negative yoel signs. DP palpable, able to wiggle toes/ankle movement without difficulty. silverlon dressing clean dry bilaterally. expected post-operative bruising noted. Laboratory Results WBC 9.87 K/uL (4.8-10 .8) 09/10/18 05:26 RBC 2.52 M/uL (4.2-5. 4) L 09/10/18 05:26 Hgb 7.5 g/dL (12.0-16 .0) L 09/10/18 05:26 Hct 23.1 % (37-47) L 09/10/18 05:26 MCV 91.7 fL (80-100) 09/10/18 05:26 MCH 29.8 pg (25-34) 09/10/18 05:26 MCHC 32.5 g/dL (32-36) 09/10/18 05:26 RDW Std Deviation 50.0 fL (36.4-46. 3) H 09/10/18 05:26 RDW Coeff of Vikas 14.8 % (11.5-14.5 ) H 09/10/18 05:26 Plt Count 210 K/uL (130-400 ) 09/10/18 05:26 MPV 10.0 fL (7.4-10.4 ) 09/10/18 05:26 Immature Gran % (A uto) 0.5 % 09/10/18 05:26 Neut % (Auto) 67.7 % 09/10/18 05:26 Lymph % (Auto) 19.1 % 09/10/18 05:26 [place] % (Auto) 10.7 % 09/10/18 05:26 Eos % (Auto) 1.8 % 09/10/18 05:26 Baso % (Auto) 0.2 % 09/10/18 05:26 Immature Gran # (A uto) 0.05 K/uL (0.00-0 .02) H 09/10/18 05:26 Neut # (Auto) 6.67 K/uL (1.4-6. 5) H 09/10/18 05:26 Lymph # (Auto) 1.89 K/uL (1.2-3. 4) 09/10/18 05:26 [place] # (Auto) 1.06 K/uL (0.11-0 .59) H 09/10/18 05:26 Eos # (Auto) 0.18 K/uL (0-0.5) 09/10/18 05:26 Baso # (Auto) 0.02 K/uL (0-0.2) 09/10/18 05:26 RBC Morphology Unremarkable 09/10/18 05:26 PT 10.7 Seconds (9.0 -12.0) 08/24/18 14:04 INR 1.0 (0.9-1.1) 08/24/18 14:04 APTT 27.8 Seconds (21. 0-31.0) 08/24/18 14:04 PTT Ratio 1.0 08/24/18 14:04 Sodium 138 mmol/L (136-1 45) 09/08/18 05:52 Potassium 4.4 mmol/L (3.5-5 .1) 09/08/18 05:52 Chloride 105 mmol/L (98-10 7) 09/08/18 05:52 Carbon Dioxide 29 mmol/L (21-32) 09/08/18 05:52 Anion Gap 4.0 (3-11) 09/08/18 05:52 BUN 16 mg/dl (7-18) 09/08/18 05:52 Creatinine 0.80 mg/dl (0.6-1 .2) 09/08/18 05:52 Est Cr Clr Drug Do sing 86.6 ml/min 09/08/18 05:52 Est GFR ( A gómez) 92.2 09/08/18 05:52 Est GFR (Non-Af Am er) 79.6 09/08/18 05:52 BUN/Creatinine Rat io 19.9 (10-20) 09/08/18 05:52 Glucose 117 mg/dl (70-99) H 09/08/18 05:52 POC Glucose 93 (70-99) 09/07/18 07:45 Calcium 7.8 mg/dl (8.5-10 .1) L 09/08/18 05:52 Urine Color Yellow 08/24/18 14:04 Urine Appearance Clear (Clear) 08/24/18 14:04 Urine pH 5.0 (4.5-7.5) 08/24/18 14:04 Ur Specific [place] 1.016 (1.000-1.0 30) 08/24/18 14:04 Urine Protein Negative (Negati ve) 08/24/18 14:04 Urine Glucose (UA) Negative (Negati ve) 08/24/18 14:04 Urine Ketones Negative (Negati ve) 08/24/18 14:04 Urine Blood Negative (Negati ve) 08/24/18 14:04 Urine Nitrite Negative (Negati ve) 08/24/18 14:04 Urine Bilirubin Negative (Negati ve) 08/24/18 14:04 Urine Urobilinogen Negative (Negati ve) 08/24/18 14:04 Ur Leukocyte [place] ase Negative (Negati ve) 08/24/18 14:04 Blood Type O Positive 08/24/18 14:04 Antibody Screen NEGATIVE 08/24/18 14:04
[2018-09-10] MEDS: DOCUSATE SODIUM 100 MG CAP PO SCH ×2 (08:54→20:39)
[2018-09-10] MEDS: VENLAFAXINE HCL XR 75 MG CAPXR PO SCH (08:54)
[2018-09-10] MEDS: FERROUS GLUCONATE 324 MG TAB PO SCH ×2 (08:54→17:37)
[2018-09-10] MEDS: MULTIVITAMIN TAB PO SCH (08:54)
[2018-09-10] MEDS: ARIPiprazole 5 MG TAB PO SCH (08:55)
[2018-09-10] MEDS: BuPROPion XL 300 MG TABCR PO SCH (08:55)
[2018-09-10] MEDS: RIVAROXABAN 10 MG TABLET PO SCH (08:55)
[2018-09-10] MEDS: POTASSIUM CHLORIDE 10 MEQ TABCR PO SCH ×2 (08:55→20:39)
[2018-09-10] MEDS: MAGNESIUM HYDROXIDE SUSP 30 ML UDC PO PRN ×2 (08:56→18:57)
[2018-09-10 14:37] LABS: Hematocrit (blood only) 26.1 % (37-47); Hemoglobin 8.5 g/dL (12.0-16.0)
[2018-09-10] MEDS: SENNA 8.6 MG TAB PO SCH (20:39)
[2018-09-11] MEDS: OXYCODONE HCL IR 5 MG TAB (IMMEDIATE RELEASE) PO PRN ×5 (03:48→20:15)
[2018-09-11] MEDS: LEVOTHYROXINE SODIUM 50 MCG TABLET PO SCH (05:47)
[2018-09-11] MEDS: ACETAMINOPHEN 500 MG TAB PO SCH ×3 (05:47→20:17)
[2018-09-11] MEDS: DOCUSATE SODIUM 100 MG CAP PO SCH ×2 (09:02→20:17)
[2018-09-11] MEDS: ARIPiprazole 5 MG TAB PO SCH (09:02)
[2018-09-11] MEDS: RIVAROXABAN 10 MG TABLET PO SCH (09:03)
[2018-09-11] MEDS: FERROUS GLUCONATE 324 MG TAB PO SCH ×2 (09:03→17:42)
[2018-09-11] MEDS: BuPROPion XL 300 MG TABCR PO SCH (09:03)
[2018-09-11] MEDS: MULTIVITAMIN TAB PO SCH (09:03)
[2018-09-11] MEDS: VENLAFAXINE HCL XR 75 MG CAPXR PO SCH (09:03)
[2018-09-11] MEDS: POTASSIUM CHLORIDE 10 MEQ TABCR PO SCH ×2 (09:04→20:16)
--- NOTE | 2018-09-11 09:19 | Orthopedic Progress Note ---
Date of Service September 11, 2018 Assessment & Plan (1) Status post total bilateral knee replacement: POD #4 s/p Bilateral TKA pt/ot dvt proph with [facility]/scd/xarelto To SNF Thursday Will re check H/H today. Subjective POD #4 s/p bilateral TKA denies CP/SOB denies Fever/Chills denies N/V Musculoskeletal: as per Subjective / HPI Physical Exam Vital Signs (Past 24 Hours): Last Vital Signs Temp 36.9 C 09/11/18 07:27 Pulse 86 09/11/18 07:27 Resp 18 09/11/18 07:27 BP 132/80 09/11/18 07:27 Pulse Ox 92 09/11/18 07:27 Physical Exam: Both knees silverlon dressings c/d/i, no drainage, no calf tenderness, toes and ankles mobile. A&Ox3.
[2018-09-11] MEDS: SODIUM CHLORIDE 0.9% 1000ML 1,000 ML IV SCH (09:33)
[2018-09-11 10:36] LABS: Hematocrit (blood only) 25.1 % (37-47); Hemoglobin 8.3 g/dL (12.0-16.0); Mean Corpuscular Hgb Conc 33.1 g/dL (32-36); Mean Corpuscular Volume 91.6 fL (80-100); Mean Platelet Volume 9.7 fL (7.4-10.4); Platelet Count 246 K/uL (130-400); RDW Coefficient of Variation 15.3 % (11.5-14.5); RDW Standard Deviation 51.3 fL (36.4-46.3); Red Blood Count 2.74 M/uL (4.2-5.4); White Blood Count 10.39 K/uL (4.8-10.8)
[2018-09-11] MEDS: SENNA 8.6 MG TAB PO SCH (20:17)
[2018-09-12] MEDS: OXYCODONE HCL IR 5 MG TAB (IMMEDIATE RELEASE) PO PRN ×6 (00:19→20:49)
[2018-09-12] MEDS: LEVOTHYROXINE SODIUM 50 MCG TABLET PO SCH (05:56)
[2018-09-12] MEDS: ACETAMINOPHEN 500 MG TAB PO SCH ×3 (05:56→20:49)
[2018-09-12 06:05] LABS: Basophils # (auto) 0.02 K/uL (0-0.2); Basophils % (auto) 0.2 %; Eosinophils # (auto) 0.21 K/uL (0-0.5); Eosinophils % (auto) 2.2 %; Hematocrit (blood only) 25.2 % (37-47); Hemoglobin 8.2 g/dL (12.0-16.0); Immature Granulocytes # (auto) 0.04 K/uL (0.00-0.02); Immature Granulocytes % (auto) 0.4 %; Lymphocytes # (auto) 1.68 K/uL (1.2-3.4); Lymphocytes % (auto) 17.9 %; Mean Corpuscular Hgb Conc 32.5 g/dL (32-36); Mean Corpuscular Volume 91.3 fL (80-100); Mean Platelet Volume 9.7 fL (7.4-10.4); Monocytes # (auto) 0.85 K/uL (0.11-0.59); Monocytes % (auto) 9.1 %; Neutrophils # (auto) 6.56 K/uL (1.4-6.5); Neutrophils % (auto) 70.2 %; Platelet Count 289 K/uL (130-400); RDW Coefficient of Variation 15.2 % (11.5-14.5); RDW Standard Deviation 50.6 fL (36.4-46.3); Red Blood Count 2.76 M/uL (4.2-5.4); White Blood Count 9.36 K/uL (4.8-10.8)
[2018-09-12 06:31] LABS: RBC Morphology Unremarkable
[2018-09-12] MEDS: ARIPiprazole 5 MG TAB PO SCH (08:32)
[2018-09-12] MEDS: FERROUS GLUCONATE 324 MG TAB PO SCH ×2 (08:32→17:38)
[2018-09-12] MEDS: DOCUSATE SODIUM 100 MG CAP PO SCH ×2 (08:32→20:50)
[2018-09-12] MEDS: BuPROPion XL 300 MG TABCR PO SCH (08:33)
[2018-09-12] MEDS: POTASSIUM CHLORIDE 10 MEQ TABCR PO SCH ×2 (08:33→20:49)
[2018-09-12] MEDS: VENLAFAXINE HCL XR 75 MG CAPXR PO SCH (08:33)
[2018-09-12] MEDS: MULTIVITAMIN TAB PO SCH (08:33)
[2018-09-12] MEDS: RIVAROXABAN 10 MG TABLET PO SCH (08:34)
--- NOTE | 2018-09-12 08:59 | Orthopedic Progress Note ---
Date of Service September 12, 2018 Assessment & Plan (1) Status post total bilateral knee replacement: POD #5 s/p Bilateral TKA pt/ot dvt proph with [facility]/scd/xarelto To SNF Thursday Will re check H/H in AM Will stop dilaudid, add morphine as she has tolerated this well in the past, add oxycontin q 12hrs. Subjective POD #5 s/p bilateral TKA denies CP/SOB denies Fever/Chills denies N/V having increased pain specifically the right knee area, states cannot tolerate dilaudid- she becomes very lathargic, 2 oxycodones not relieving pain, states she has had morphine in the past with no adverse reactions. Hgb 8.2 no dizziness, asymptomatic, BP stable. Musculoskeletal: as per Subjective / HPI Physical Exam Vital Signs (Past 24 Hours): Last Vital Signs Temp 37.1 C 09/12/18 07:02 Pulse 99 H 09/12/18 07:02 Resp 18 09/12/18 07:02 BP 115/61 09/12/18 07:02 Pulse Ox 94 09/12/18 07:02 Physical Exam: Both knees silvrlons in tact, no drainage, toes and ankles mobile B/L, no calf tenderness B/L. Negative homans B/L. A&Ox3.
[2018-09-12] MEDS ORDERED: MoRPHine SULFATE 2 MG/ML CARP IV PRN (09:07)
[2018-09-12] MEDS: OXYCODONE HCL 10 MG TABCR (OXYCONTIN) PO SCH ×2 (09:36→20:49)
[2018-09-12] MEDS: SENNA 8.6 MG TAB PO SCH (20:50)
[2018-09-13] MEDS: OXYCODONE HCL IR 5 MG TAB (IMMEDIATE RELEASE) PO PRN ×5 (01:06→17:48)
[2018-09-13 05:48] LABS: Hematocrit (blood only) 25.2 % (37-47); Hemoglobin 8.1 g/dL (12.0-16.0); Mean Corpuscular Hgb Conc 32.1 g/dL (32-36); Mean Corpuscular Volume 91.3 fL (80-100); Mean Platelet Volume 9.2 fL (7.4-10.4); Platelet Count 319 K/uL (130-400); RDW Standard Deviation 49.8 fL (36.4-46.3); Red Blood Count 2.76 M/uL (4.2-5.4); White Blood Count 8.02 K/uL (4.8-10.8)
[2018-09-13] MEDS: ACETAMINOPHEN 500 MG TAB PO SCH ×3 (06:15→21:00)
[2018-09-13] MEDS: LEVOTHYROXINE SODIUM 50 MCG TABLET PO SCH (06:16)
[2018-09-13] MEDS: OXYCODONE HCL 10 MG TABCR (OXYCONTIN) PO SCH ×2 (08:39→21:03)
[2018-09-13] MEDS: DOCUSATE SODIUM 100 MG CAP PO SCH ×2 (08:39→20:51)
[2018-09-13] MEDS: FERROUS GLUCONATE 324 MG TAB PO SCH ×2 (08:39→17:49)
[2018-09-13] MEDS: VENLAFAXINE HCL XR 75 MG CAPXR PO SCH (08:39)
[2018-09-13] MEDS: MULTIVITAMIN TAB PO SCH (08:39)
[2018-09-13] MEDS: BuPROPion XL 300 MG TABCR PO SCH (08:40)
[2018-09-13] MEDS: POTASSIUM CHLORIDE 10 MEQ TABCR PO SCH ×2 (08:40→21:01)
[2018-09-13] MEDS: RIVAROXABAN 10 MG TABLET PO SCH (08:40)
[2018-09-13] MEDS: ARIPiprazole 5 MG TAB PO SCH (08:40)
--- NOTE | 2018-09-13 13:40 | Orthopedic Progress Note ---
Date of Service September 13, 2018 Assessment & Plan (1) Status post total bilateral knee replacement: plan is to dc to [facility] today Subjective Pt doing welll, s/p bilateral tka, pain well controlled, ambulating Physical Exam Vital Signs (Past 24 Hours): Last Vital Signs Temp 36.9 C 09/13/18 08:59 Pulse 91 H 09/13/18 08:59 Resp 16 09/13/18 08:59 BP 135/84 09/13/18 08:59 Pulse Ox 93 09/13/18 08:59 Musculoskeletal: bilateral LE's nvi, incision look great
[2018-09-13] MEDS: SENNA 8.6 MG TAB PO SCH (20:52)
[2018-09-13] MEDS ORDERED: FUROSEMIDE 40 MG TAB PO ONE (21:26)
--- NOTE | 2018-09-13 22:58 | Ultrasound Report ---
US venous doppler LE BI HISTORY: Pain assess for DVT COMPARISON STUDY: None. FINDINGS: Focal deep venous thrombosis right peroneal veins. This does not extend to the popliteal re gion. Is exclusively inferior to the right knee. Left leg shows normal venous characteristics throughout. IMPRESSION: 1. Focal deep venous thrombosis inferior to the right knee involving the right peroneal vein. 2. No evidence for extension superior to the knee or to the popliteal region. 3. Normal venous Doppler left leg. The above report was generated using voice recognition software. It may contain grammatical, syntax or spelling errors. Electronically signed by: Randal Billingsley M.D. 09/13/2018 10:57 PM
[2018-09-14] MEDS: OXYCODONE HCL IR 5 MG TAB (IMMEDIATE RELEASE) PO PRN ×4 (00:56→13:23)
--- NOTE | 2018-09-14 05:14 | Consultation ---
Date of Consultation September 14, 2018 Assessment & Plan (1) DVT of leg (deep venous thrombosis): 62 y/o F Hx hypothyroidsim, depression, DJD. Presented for elective BL TKA 09/07. She had increasing pain in her RLE and a doppler was obtained. This demonstrated a DVT involving the right peroneal vein. The pt was started on Eliquis for prophylaxis one day prior. 1) DVT - post-op - she can remain on her Eliquis as she only started taking it 1 day ago. Her DVT then likely occurred immediately post-op. This can be followed in the outpt setting as she is anticoagulated. 2) Hypothyroidism - cont Synthroid 3) Depression - cont Effexor The medical service will sign off as again, the pt is already anticoagulated Total time for this consult 29 min Present on Admission?: Yes History of Present Illness Reason for Consultation: DVT Requesting Physician: Orthopedics Attending Physician: Zay Nevarez DO History of Present Illness 62 y/o F Hx hypothyroidsim, depression, DJD. Presented for elective BL TKA 09/07. She had increasing pain in her RLE and a doppler was obtained. This demonstrated a DVT involving the right peroneal vein. The pt was started on Eliquis for prophylaxis one day prior. The medical service was asked to consult due to her DVT. PMH: 1) Hypothyroidism 2) DJD 3) Depression Surgical: BL TKA Social: Does not smoke or drink Family: Father owing to a CVA at age 53 Allergies Allergy/AdvReac Type Severity Reaction Status Date / Time No Known Allergies Allergy Verified 09/07/18 06:44 Home Medications Home Medications Medication Instructions Recorded Confirmed Type aripiprazole [Abilify] 5 mg PO QAM 08/17/18 09/07/18 History bupropion HCl 300 mg PO QAM 08/17/18 09/07/18 History cholecalciferol (vitamin D3) 2,000 unit PO QAM 08/17/18 09/07/18 History [Vitamin D3] furosemide 40 mg PO QAM 08/17/18 09/07/18 History levothyroxine 50 mcg PO QAM 08/17/18 09/07/18 History potassium chloride 10 meq PO BID 08/17/18 09/07/18 History sumatriptan succinate [Imitrex] 1 tab PO UD PRN 08/17/18 09/07/18 History venlafaxine [Effexor XR] 75 mg PO QAM 08/17/18 09/07/18 History acetaminophen [Pain Reliever] 1,000 mg PO Q8 14 Days #84 tab 09/09/18 Rx cefadroxil 500 mg PO BID 10 Days #20 cap 09/09/18 Rx docusate sodium 100 mg PO BID 10 Days #20 cap 09/09/18 Rx oxycodone 5 - 10 mg PO Q6H PRN #30 tab 09/09/18 Rx rivaroxaban [Xarelto] 10 mg PO DAILY 26 Days #26 tab 09/09/18 Rx Patient History Social History Preferred Language: Sinhala Beliefs That Will Affect Care: None marital status: Current Living Situation: Spouse and Family Other Information That Helps Us Care for You: No Feels Safe at Home: Yes Safety Concerns: Feels Safe At This Time Smoking Status: Former smoker Hx Alcohol Use: Yes (ON OCC) Hx Substance Use: No Review of Systems Gen: Denies fevers, night sweats, rigors, fatigue, malaise, weight loss/gain ENT: Denies congestion, throat pain, hearing loss Eyes: Denies acute visual changes CV: Denies CP, palpitations Pulmonary: Denies SOB, cough, wheezing GI: Denies N/V, diarrhea, constipation Neuro: Denies acute or unilateral weakness, acute gait impairment, headache or acute visual changes Musculoskeletal: Pain behind R knee Endocrine: Denies polydipsia, polyuria Skin: Denies acute rashes or ulcers Physical Exam Vital Signs (Past 24 Hours): Last Vital Signs Temp 36.8 C 09/13/18 23:42 Pulse 89 09/13/18 23:42 Resp 18 09/13/18 23:42 BP 150/89 H 09/13/18 23:42 Pulse Ox 94 09/13/18 23:42 Physical Exam: General: AAO x 3, no distress ENT: No erythema or exudates, no thrush Eyes: ZAC, EOMI Head and neck: Normocephalic, atraumatic, No JVD, neck is supple. Chest/heart: Nontender, S1,2, RRR, no murmurs, no gallops Lungs: CTAB, no wheezing or crackles Abdomen: Nontender, nondistended, BS+ Neuro: AAO x 3, speech is clear, no unilateral weakness or loss of sensation, coordination intact Musculoskeletal: No joint inflammation, muscle tenderness, FROM Skin: No acute rashes or ulcers Extremities: No clubbing, cyanosis, edema
[2018-09-14] MEDS: ACETAMINOPHEN 500 MG TAB PO SCH ×2 (06:30→13:21)
[2018-09-14] MEDS: LEVOTHYROXINE SODIUM 50 MCG TABLET PO SCH (06:31)
[2018-09-14] MEDS: OXYCODONE HCL 10 MG TABCR (OXYCONTIN) PO SCH (08:50)
[2018-09-14] MEDS: POTASSIUM CHLORIDE 10 MEQ TABCR PO SCH (08:50)
[2018-09-14] MEDS: BuPROPion XL 300 MG TABCR PO SCH (08:51)
[2018-09-14] MEDS: RIVAROXABAN 10 MG TABLET PO SCH (08:51)
[2018-09-14] MEDS: ARIPiprazole 5 MG TAB PO SCH (08:52)
[2018-09-14] MEDS: FERROUS GLUCONATE 324 MG TAB PO SCH (08:52)
[2018-09-14] MEDS: VENLAFAXINE HCL XR 75 MG CAPXR PO SCH (08:52)
[2018-09-14] MEDS: DOCUSATE SODIUM 100 MG CAP PO SCH (08:52)
[2018-09-14] MEDS: MULTIVITAMIN TAB PO SCH (08:52)
--- NOTE | 2018-09-14 13:34 | Orthopedic Progress Note ---
Date of Service September 14, 2018 Assessment & Plan (1) Status post total bilateral knee replacement: Status post bilateral total knee arthroplasty, postoperative right lower extremity DVT Postoperative day 7 Medical service recommendations appreciated Patient on Xarelto currently for blood thinner, no SCD on right lower extremity Weight-bear as tolerates bilateral lower extremity Pain controlled PT/OT Discharge planning home with home health Subjective Post Operative Progress Note Patient seen sitting up in bed, comfortable, denies complaints, pain well controlled, no acute issues. Denies shortness of breath chest pain. Musculoskeletal: as per Subjective / HPI Physical Exam Vital Signs (Past 24 Hours): Last Vital Signs Temp 36.9 C 09/14/18 07:57 Pulse 85 09/14/18 07:57 Resp 18 09/14/18 07:57 BP 129/84 09/14/18 07:57 Pulse Ox 96 09/14/18 12:36 Physical Exam: Bilateral lower extremities are neurovascular sensory intact, + EHL/FHL/TA/GS, sensory intact light touch grossly, +2 dorsalis pedal pulse, compartments soft nontender, dressings clean dry and intact. Constitutional: WD/WN, vitals as above
--- NOTE | 2018-09-16 03:15 | Discharge Summary ---
DISCHARGE DIAGNOSIS: Degenerative joint disease, bilateral knees. SECONDARY DIAGNOSES: History of anemia, depression, hypothyroidism, migraine headache, Raynaud's disease, history of thoracic aortic aneurysm, deep venous thrombosis involving right peroneal vein during this visit. CONSULTATIONS: Dr. Kody Perry. COMPLICATIONS: Right peroneal vein DVT. PROCEDURES: Bilateral total knee arthroplasty performed by Dr. Nevarez on 09/07/2018. BRIEF HISTORY: As dictated in the history and physical. HOSPITAL SUMMARY: The patient was admitted on the above-noted date and had the above-noted surgery performed, which she tolerated well. On her first postoperative day, she was having some lightheadedness and increased pain that morning, right greater than left. Denied fever, chills. No nausea or vomiting. No shortness of breath or chest pain. Vital signs were stable. She was afebrile. BP was 100/64. Neurovascularly was intact. Calves were soft and nontender. Toes were mobile and dressings were clean, dry, and intact. Hemoglobin was 8.8 and she was started on physical therapy protocol and continued on DVT prophylaxis and pain management. Plans were to continue her fluids and recheck H and H at 1600. I discussed the possible need for a transfusion with the patient. Repeat H and H was 8.6. By her second postoperative day, she felt that her lightheadedness was improved and no episodes thus far through that morning. She had no other complaints. Vital signs were stable. She is afebrile. Toes were mobile. Calves were soft, nontender. Neurovascularly intact. Silverlon dressings were clean, dry and intact and hemoglobin was 8.2 that morning. She was continued on her protocol with PT and OT and her DVT prophylaxis and pain management. Plan is for possible discharge to rehab facility if approved. By her third postoperative day, they were still waiting approval for rehab center. Her hemoglobin was 7.5 and she was transfused 1 unit of PRBCs. Vital signs were stable and she was afebrile. Silverlon dressings were clean, dry and intact. Neurovascularly intact. Calves were soft, nontender. Negative Homans sign. Dorsalis pedis pulses were palpable. Toes were mobile and she was continued on her protocol and awaiting clearance to go to a rehab facility. The patient was ultimately denied a rehab facility and plans were to check with fpc facilities in the area. This will not be able to be done until the following Thursday. She was continued through her weekend with her PT protocols and was otherwise remaining stable. By postop day 5, she was having increased pain, specifically in the right knee area, but discussed different medications that were not working for her due to lethargy. The Dilaudid was making her very lethargic and was switched to morphine. Hemoglobin was 8.2. She had no lightheadedness, etc. Blood pressure was stable. Pulse was 99. Silverlons were intact. No drainage. Toes and ankles were mobile bilaterally. She had no calf tenderness bilaterally and negative Homans' bilaterally. The patient was seen early in the morning by Dr. Perry due to increased pain in the right lower extremity. He saw the patient and felt a Doppler was warranted. This Doppler showed a venous thrombosis inferior to the right knee involving the right peroneal vein. No evidence for extension superior to the knee to the popliteal region and a normal Doppler in the left lower extremity. The patient had been on Xarelto 10 mg p.o. daily. I saw the patient along with Dr. Weaver on September 14. Dr. Weaver initially saw the patient and it was found out through her insurance that she was going to be denied a fpc facility. The patient, however, was progressing quite well with her physical therapy and she felt she could go home with home health. I discussed with Dr. Perry use of Xarelto versus Eliquis and we opted to maintain her Xarelto that she was on. Plans were to increase her Xarelto to 15 mg p.o. b.i.d. for 1 month and then 20 mg p.o. daily for [address] Perry's instructions. The patient discussed with me that she was going to see her family physician, Dr. White, and we recommended that she see him in the next week or so to have him continue to follow up with her DVT and adjust her medications as necessary. She was otherwise remaining stable, progressing with her PT. Vital signs were stable and she was afebrile and it was felt that she could be discharged to home with home health services for further care. For further review, please see chart. LABORATORY AND X-RAY DATA: As per chart. DISCHARGE INSTRUCTIONS: The patient was discharged home in satisfactory condition with home health services on 09/14/2018. DIET: Regular. ACTIVITY: Weightbearing as tolerated on the right and left lower extremities with a walker. No driving until cleared by her physician. Follow TKA instruction sheets and special care instructions as noted including taking her Xarelto in the a.m. and p.m. for 1 month. You will need to take 20 mg once daily for 2 months following that. Follow up with your primary care physician in 1 week. He will eventually take over your Xarelto dosing. This is for your DVT treatment. Follow up with Dr. Nevarez in 2 weeks. The patient is to call for appointment if one has not been made for you. DISCHARGE MEDICATIONS: Acetaminophen 1000 mg p.o. q. 8 hours, cefadroxil 500 mg p.o. b.i.d., Colace 100 mg p.o. b.i.d., oxycodone 5-10 mg p.o. q. 6 hours p.r.n., rivaroxaban 15 mg p.o. b.i.d. Resume home meds as listed and stop taking naproxen.
== END 2018-09-14 16:30 | disposition home health service (06) | DRG 462 ==
LOC: ASU 06:23 → 3E 11:11 → UNDODISIN 09-13 11:45

== ENCOUNTER 2024-08-29 12:45 | Observation (INO) ==
--- NOTE | 2024-08-29 14:41 | History & Physical Report ---
Date of Service August 29, 2024 Assessment & Plan (1) Bright red blood per rectum: (2) Iron deficiency anemia: (3) Hypothyroidism: (4) Depression: (5) DVT prophylaxis: Plan lower GI bleedingfortunately overall hemodynamically stable. Mild elevation in heart rate and mild dizziness, but otherwise appears well. Follow-up hemoglobin to compare to what it was at [place] this morning. Follow-up in AM. Follow clinically. Fortunately bleeding seems to be slowing or resolved. Discussed with GIhave consulted. Hopefully repeat colonoscopy will not be needed, but appreciate their availability should the bleeding not resolved. Clear liquid diet with no red liquids for now until it is clear colonoscopy is not needed. Hold aspirinwill have to revisit with patient is not entirely clear the risk/benefit balance that has her on aspirin to begin with depression/PTSDcontinue home meds hypothyroidismcontinue home meds Raynaud'sholding amlodipine for now until it is clear how her hemodynamics vector DVT prophylaxisambulation (pharmacologic obviously contraindicated due to overt GI bleeding, mechanical of dubious benefit). full code Admission and Anticipated Discharge Date Admission Date: August 29, 2024 History of Present Illness Chief Complaint: bright red blood per rectum Primary Care Provider: Queta Engel DO patient is a very pleasant 68-year-old female who had a colonoscopy/polypectomy last week. She was feeling fine, and then early this morning woke up with a feeling like she had a bowel movement urgently. Over the next short period of time she had 3 episodes of what she describes essentially bright red blood per rectum/bloody diarrhea. Given that it happened multiple times in a row she wondered if she was having of bleed at the site of her polypectomy, and proceeded to the ER. There she appeared to be overall stable, but given the recent polypectomy, lower GI bleedingCase was discussed with gastroenterology here who wanted her in our facility to monitor, with the plan of a repeat colonoscopy if the bleeding persists. Since then, she has not had any bloody diarrhea, did void on arrival here to this facility, and she noted whenever she wiped after voiding there was some blood on the toilet paper. She feels mildly lightheaded but no other symptoms. Allergies Allergy/AdvReac Type Severity Reaction Status Date / Time No Known Drug Allergies Allergy Verified 08/23/24 09:25 Home Medications Medication Instructions Recorded Confirmed Type cholecalciferol (vitamin D3) 125 125 mcg PO DAILY 10/31/21 08/23/24 History mcg (5,000 unit) capsule magnesium oxide 400 mg PO QPM 10/31/21 08/23/24 History omega-3 fatty acids 1,000 mg 1,000 mg PO QAM 10/31/21 08/23/24 History capsule zinc gluconate 50 mg tablet 50 mg PO QAM 10/31/21 08/23/24 History aspirin 81 mg tablet,delayed 81 mg PO QAM 09/30/22 08/23/24 History release mecobalamin (vitamin B12) 5,000 5,000 mcg PO QAM 11/13/22 08/23/24 History mcg chewable tablet multivitamin (Daily Multi-Vitamin 1 tab PO QAM 11/18/23 08/23/24 History tablet) zoledronic acid 5 mg/100 mL in See Rx Instructions IV .every 12 11/20/23 08/23/24 Rx mannitol 5 %-water intravenous mos #100 mL piggybck (Reclast) potassium chloride 10 mEq 10 meq PO BID #200 caps 03/28/24 08/23/24 Rx capsule,extended release linaclotide 290 mcg capsule 290 mcg PO DAILY #90 caps 03/31/24 08/23/24 Rx (Linzess) levothyroxine 50 mcg tablet 50 mcg PO QAM #100 tabs 05/23/24 08/23/24 Rx aripiprazole 5 mg tablet (Abilify) 5 mg PO QAM #90 tabs 06/02/24 08/23/24 Rx sumatriptan succinate 100 mg tablet 100 mg PO Q2H PRN migraine 06/27/24 08/23/24 Rx headache #90 tabs bupropion HCl 300 mg 24 hr tablet, 300 mg PO QAM #90 tabs 07/04/24 08/23/24 Rx extended release venlafaxine 75 mg capsule,extended 75 mg PO QAM #90 caps 07/04/24 08/23/24 Rx release 24 hr (Effexor XR) gabapentin 100 mg capsule 400 mg (4 x 100 mg) PO HS PRN 08/01/24 08/23/24 Rx restless leg(s) #270 caps peg 3350-sod sulf,[id number] See Rx Instructions PO .COMPLEX #2 08/05/24 08/23/24 Rx 178.7-7.3-0.5-1.12-0.9 gram oral mL soln (Suflave) furosemide 40 mg tablet 40 mg PO QAM #90 tabs 08/08/24 08/23/24 Rx amlodipine 5 mg tablet 5 mg PO QAM 08/12/24 08/23/24 History riboflavin (vitamin B2) 400 mg 400 mg PO QAM 08/12/24 08/23/24 History tablet Past Med/Surg History Problem List (Updated 08/29/24 @ 14:39 by Tyrell Kendall DO) DVT prophylaxis Bright red blood per rectum History of colon polyps Encounter for pre-operative examination Osteoporosis Idiopathic polyneuropathy Prediabetes Chronic venous insufficiency Iron deficiency anemia Vitamin D deficiency PTSD (post-traumatic stress disorder) History of deep vein thrombosis (08/2018) R peroneal vein post b/l knee replacement; treated anticoagulation x 3 mos Thoracic aortic aneurysm MILD ASCENDING THORACIC AORTA ECTASIA History of gastric bypass (2001) Osteoarthritis Hypothyroidism Depression Migraine Raynaud disease Medical History History of prediabetes patient states changed diet and lost weight, denies prediabetes History of deep vein thrombosis after bilateral knee replacement 2017, treated with anticoagulants x 3 months then stopped Hypothyroidism Depression Chronic venous insufficiency Migraines PTSD (post-traumatic stress disorder) Vitamin D deficiency Osteoarthritis Osteoporosis Idiopathic polyneuropathy Raynauds disease Pulmonary nodule patient denies History of hypertension MEDS DISCONTINUED S/P GASTRIC BYPASS/WEIGHT LOSS Degenerative arthritis of knee, bilateral Anemia Surgical History Hx of colonoscopy scheduled for 08/23/24 at [facility] History of hernia repair History of gastric bypass 2001 Status post total bilateral knee replacement (08/2018) History of repair of rotator cuff RIGHT LEFT History of hysterectomy secondary to uterine prolapse; still w/ ovaries H/O foot surgery B/L BUNIONECTOMY Family History Father Stroke, Onset Age: 57 Mother Asthma Hypertension Grandmother (Maternal) Leukemia Denies family history of Prostate cancer Breast cancer Colorectal cancer Social History Smoking Status: Never smoker Tobacco Type: Cigarettes Age Started Using Tobacco: 19; Age Quit Using Tobacco: 22; packs per day: 0.15; Second Hand Exposure: No; Do You Dip or Chew Tobacco: No; Hx Alcohol Use: No Hx Substance Use: No Preferred Language: [place] Communication Ability: Effective Visual Impairment: No Limitations Hearing Ability: Normal Manager Pe Required: No Beliefs That Will Affect Care: None marital status: Current Living Situation: Spouse Current Living Situation Comment: Spouse, son current occupational status: retired current occupation: [employer] How many Children do You have: 4 Other Information That Helps Us Care for You: No Feels Safe at Home: Yes Safety Concerns: Feels Safe At This Time Diet: regular Diet Comment: regular caffeine: Yes during the past year weight has: decreased > 10 lbs Dental Care, Regularly: Yes Physical Activity Frequency: Daily Seatbelt Use: always Sunscreen Use: Yes Assistive Devices: Glasses Assistive Devices Comment: partial upper and partial lowers Review of Systems Review of Systems: All systems reviewed & are unremarkable except as noted in HPI & below Physical Exam Physical Exam: In general she is awake alert oriented x 3 pleasant no distress. HEENT normocephalic atraumatic mucous membranes moist. Cardio is regular maybe slightly tachycardic no rubs murmurs or gallops. Lungs are clear to auscultation bilaterally no rales rhonchi or wheezes good effort. Abdomen is soft nondistended nontender no masses organomegaly. Normal bowel sounds may be slightly hyperactive. Extremities are without sinus clubbing or edema no calf tenderness. Skin is without rashes pallor or icterus. Neuro shows cranial nerves II through XII be grossly intact gross motor and sensory intact. Mental status shows good recent and remote recall normal mood and affect. Results & Data Results & Data Vital Signs (Past 12 Hours) Vital Signs Temp Pulse Resp BP Pulse Ox O2 Del Method 08/29/24 13:21 98.4 F 96 H 18 109/96 95 Room Air 08/29/24 13:10 98.4 F 96 H 18 109/96 95 Room Air Code Status & VTE Plan VTE Prophylaxis Plan VTE Prophylaxis will be ordered: No Reason for no VTE drug order: Contraindicated PG Care Time/CCT Total # of Minutes Spent Total Time Spent with Patient: Total time spent is greater than 50% in coordination of care (as documented) at patient's floor/unit and/or counseling patient: Coding Level of Care Code 74644 INT INP/OBS CARE 3/75MIN Diagnoses Bright red blood per rectum K62.5 Iron deficiency anemia D50.9 Hypothyroidism E03.9 Depression F32.9 DVT prophylaxis Z29.9
--- NOTE | 2024-08-29 15:29 | Gastrointestinal Consultation ---
Date of Consultation August 29, 2024 Assessment & Plan (1) Bright red blood per rectum: 68-year-old female who had a colonoscopy/polypectomy last week. She was feeling fine, and then early this morning woke up with a feeling like she had a bowel movement urgently. Over the next short period of time she had 3 episodes of what she describes essentially bright red blood per rectum/bloody diarrhea. Given that it happened multiple times in a row she wondered if she was having of bleed at the site of her polypectomy, and proceeded to the ER. She appears to have post polypectomy bleeding from a 20 mm polyp removed via hot snare last week by Dr. Pascal. At this point I would put her on a full liquid diet as she has not had any further bleeding. We can give her some mag citrate orally just to prep her and make sure all the blood is out. If she has no further bleeding and hemoglobin stays stable soft diet tomorrow. If she has a lot of bleeding then we will consider a colonoscopy with further clips. History of Present Illness Reason for Consultation: Rectal bleeding Requesting Physician: Dr. Kendall Attending Physician: Tyrell Kendall, History of Present Illness 68-year-old female who had a colonoscopy/polypectomy last week -at snare was performed on a 20 mm ascending colon polyp by Dr. Allen. She was feeling fine, and then early this morning woke up with a feeling like she had a bowel movement urgently. Over the next short period of time she had 3 episodes of what she describes essentially bright red blood per rectum/bloody diarrhea. Given that it happened multiple times in a row she wondered if she was having of bleed at the site of her polypectomy, and proceeded to the ER. Since arrival to [facility], she is hemodynamically stable except for mild tachycardia. Her hemoglobin is 13 and she has not had another bowel movement with bleeding. I suspect this is post polypectomy bleeding and I would hold her aspirin. Allergies Allergy/AdvReac Type Severity Reaction Status Date / Time No Known Drug Allergies Allergy Verified 08/23/24 09:25 Home Medications Medication Instructions Recorded Confirmed Type cholecalciferol (vitamin D3) 125 125 mcg PO DAILY 10/31/21 08/23/24 History mcg (5,000 unit) capsule magnesium oxide 400 mg PO QPM 10/31/21 08/23/24 History omega-3 fatty acids 1,000 mg 1,000 mg PO QAM 10/31/21 08/23/24 History capsule zinc gluconate 50 mg tablet 50 mg PO QAM 10/31/21 08/23/24 History aspirin 81 mg tablet,delayed 81 mg PO QAM 09/30/22 08/23/24 History release mecobalamin (vitamin B12) 5,000 5,000 mcg PO QAM 11/13/22 08/23/24 History mcg chewable tablet multivitamin (Daily Multi-Vitamin 1 tab PO QAM 11/18/23 08/23/24 History tablet) zoledronic acid 5 mg/100 mL in See Rx Instructions IV .every 12 11/20/23 08/23/24 Rx mannitol 5 %-water intravenous mos #100 mL piggybck (Reclast) potassium chloride 10 mEq 10 meq PO BID #200 caps 03/28/24 08/23/24 Rx capsule,extended release linaclotide 290 mcg capsule 290 mcg PO DAILY #90 caps 03/31/24 08/23/24 Rx (Linzess) levothyroxine 50 mcg tablet 50 mcg PO QAM #100 tabs 05/23/24 08/23/24 Rx aripiprazole 5 mg tablet (Abilify) 5 mg PO QAM #90 tabs 06/02/24 08/23/24 Rx sumatriptan succinate 100 mg tablet 100 mg PO Q2H PRN migraine 06/27/24 08/23/24 Rx headache #90 tabs bupropion HCl 300 mg 24 hr tablet, 300 mg PO QAM #90 tabs 07/04/24 08/23/24 Rx extended release venlafaxine 75 mg capsule,extended 75 mg PO QAM #90 caps 07/04/24 08/23/24 Rx release 24 hr (Effexor XR) gabapentin 100 mg capsule 400 mg (4 x 100 mg) PO HS PRN 08/01/24 08/23/24 Rx restless leg(s) #270 caps peg 3350-sod sulf,[id number] See Rx Instructions PO .COMPLEX #2 08/05/24 08/23/24 Rx 178.7-7.3-0.5-1.12-0.9 gram oral mL soln (Suflave) furosemide 40 mg tablet 40 mg PO QAM #90 tabs 08/08/24 08/23/24 Rx amlodipine 5 mg tablet 5 mg PO QAM 08/12/24 08/23/24 History riboflavin (vitamin B2) 400 mg 400 mg PO QAM 08/12/24 08/23/24 History tablet Patient History Medical History History of prediabetes patient states changed diet and lost weight, denies prediabetes History of deep vein thrombosis after bilateral knee replacement 2017, treated with anticoagulants x 3 months then stopped Hypothyroidism Depression Chronic venous insufficiency Migraines PTSD (post-traumatic stress disorder) Vitamin D deficiency Osteoarthritis Osteoporosis Idiopathic polyneuropathy Raynauds disease Pulmonary nodule patient denies History of hypertension MEDS DISCONTINUED S/P GASTRIC BYPASS/WEIGHT LOSS Degenerative arthritis of knee, bilateral Anemia Surgical History Hx of colonoscopy scheduled for 08/23/24 at [facility] History of hernia repair History of gastric bypass 2002 Status post total bilateral knee replacement (08/2018) History of repair of rotator cuff RIGHT LEFT History of hysterectomy secondary to uterine prolapse; still w/ ovaries H/O foot surgery B/L BUNIONECTOMY Family History Father Stroke, Onset Age: 57 Mother Asthma Hypertension Grandmother (Maternal) Leukemia Denies family history of Prostate cancer Breast cancer Colorectal cancer Social History Smoking Status: Never smoker Tobacco Type: Cigarettes Age Started Using Tobacco: 19; Age Quit Using Tobacco: 22; packs per day: 0.15; Second Hand Exposure: No; Do You Dip or Chew Tobacco: No; Hx Alcohol Use: No Hx Substance Use: No Preferred Language: Turkmen Communication Ability: Effective Visual Impairment: No Limitations Hearing Ability: Normal Tobacco Sorter Required: No Beliefs That Will Affect Care: None marital status: Current Living Situation: Spouse Current Living Situation Comment: Spouse, son current occupational status: retired current occupation: [employer] How many Children do You have: 4 Other Information That Helps Us Care for You: No Feels Safe at Home: Yes Safety Concerns: Feels Safe At This Time Diet: regular Diet Comment: regular caffeine: Yes during the past year weight has: decreased > 10 lbs Dental Care, Regularly: Yes Physical Activity Frequency: Daily Seatbelt Use: always Sunscreen Use: Yes Assistive Devices: Glasses Assistive Devices Comment: partial upper and partial lowers Review of Systems Review of Systems: All systems reviewed & are unremarkable except as noted in HPI & below Physical Exam Physical Exam: Physical Exam: General: Well nourished and well developed in NAD HEENT: EOMI, PERRL Neck: trachea midline, no lad Lungs: CTA b, bilateral bs present Heart: RRR, no M and no edema Abd: soft, NT/ND, NABS Musculoskeletal: no c/c/e, normal strength B Neuro: CN2-12 intact, normal gait, normal strength Psych: normal affect and mood, euthymic. Results & Data Vital Signs (Past 12 Hours) Vital Signs Temp Pulse Resp BP Pulse Ox O2 Del Method 08/29/24 13:21 36.9 C 96 H 18 109/96 95 Room Air 08/29/24 13:10 36.9 C 96 H 18 109/96 95 Room Air PG Care Time/CCT Total # of Minutes Spent Total Time Spent with Patient: Total time spent is greater than 50% in coordination of care (as documented) at patient's floor/unit and/or counseling patient: Coding Level of Care Code 43754 INT INP/OBS CARE 2/55MIN Diagnoses Bright red blood per rectum K62.5
[2024-08-29] MEDS ORDERED: GABAPENTIN 400 MG CAP PO PRN (16:30)
[2024-08-29] MEDS ORDERED: ONDANSETRON INJ 2 MG/ML 2 ML VIAL IV PRN (16:30)
[2024-08-29] MEDS ORDERED: ACETAMINOPHEN 325 MG TAB PO PRN (16:30)
[2024-08-29] MEDS ORDERED: MELATONIN 3 MG TAB PO PRN (16:30)
[2024-08-29 17:13] LABS: Basophils # (auto) 0.07 K/uL (0.00-0.20); Basophils % (auto) 0.9 %; Eosinophils # (auto) 0.23 K/uL (0.00-0.50); Eosinophils % (auto) 2.9 %; Hemoglobin 12.1 g/dl (12.0-16.0); Immature Granulocytes # (auto) 0.03 K/uL (0.01-0.20); Immature Granulocytes % (auto) 0.4 %; Lymphocytes # (auto) 2.12 K/uL (1.20-3.40); Mean Corpuscular Hemoglobin 30.6 pg (25.0-34.0); Mean Corpuscular Hgb Conc 32.7 g/dL (32.0-36.0); Mean Corpuscular Volume 93.4 fL (80.0-100.0); Mean Platelet Volume 10.3 fL (9.4-12.4); Monocytes # (auto) 0.49 K/uL (0.11-0.59); Monocytes % (auto) 6.2 %; Neutrophils # (auto) 4.91 K/uL (1.40-6.50); Neutrophils % (auto) 62.6 %; Platelet Count 258 K/uL (130-400); RDW Standard Deviation 44.5 fL (36.4-46.3); Red Blood Count 3.96 M/uL (4.20-5.40); White Blood Count 7.85 K/ul (4.8-10.8)
[2024-08-29 17:25] LABS: BUN Creatinine Ratio 34.7 (10-20); Calcium 8.9 mg/dl (8.6-10.3); Creatinine Clr Calc Pharmacy 60.6 ml/min; Potassium 3.9 mmol/L (3.5-5.1)
[2024-08-29 19:40] VITALS: TEMP 97.9
[2024-08-29] MEDS: POTASSIUM CHLORIDE 10 MEQ TABCR PO SCH (20:10)
[2024-08-29] MEDS: MAGNESIUM OXIDE 400 MG TAB PO SCH (20:10)
[2024-08-30 07:36] LABS: Basophils # (auto) 0.07 K/uL (0.00-0.20); Basophils % (auto) 0.9 %; Eosinophils # (auto) 0.19 K/uL (0.00-0.50); Eosinophils % (auto) 2.5 %; Hematocrit (blood only) 34.4 % (37.0-47.0); Hemoglobin 11.3 g/dl (12.0-16.0); Immature Granulocytes # (auto) 0.02 K/uL (0.01-0.20); Immature Granulocytes % (auto) 0.3 %; Lymphocytes # (auto) 1.36 K/uL (1.20-3.40); Lymphocytes % (auto) 18.1 %; Mean Corpuscular Hemoglobin 30.6 pg (25.0-34.0); Mean Corpuscular Hgb Conc 32.8 g/dL (32.0-36.0); Mean Corpuscular Volume 93.2 fL (80.0-100.0); Mean Platelet Volume 10.9 fL (9.4-12.4); Monocytes # (auto) 0.55 K/uL (0.11-0.59); Monocytes % (auto) 7.3 %; Neutrophils # (auto) 5.32 K/uL (1.40-6.50); Neutrophils % (auto) 70.9 %; Platelet Count 244 K/uL (130-400); RDW Coefficient of Variation 13.1 % (11.5-14.5); RDW Standard Deviation 44.7 fL (36.4-46.3); Red Blood Count 3.69 M/uL (4.20-5.40); White Blood Count 7.51 K/ul (4.8-10.8)
[2024-08-30 07:48] VITALS: BP 111/70; PULSE 71; RESP 16; O2SAT 94
[2024-08-30] MEDS: VENLAFAXINE HCL XR 75 MG CAPXR PO SCH (08:18)
[2024-08-30] MEDS: MULTIVITAMIN TAB PO SCH (08:19)
[2024-08-30] MEDS: OMEGA-3 (PURIFIED FISH OIL) 1 GM CAP PO SCH (08:19)
[2024-08-30] MEDS ORDERED: NON-FORMULARY MEDICATION (Riboflavin (Vitamin B2) 400 mg tablet) PO SCH (09:00)
[2024-08-30] MEDS ORDERED: NON-FORMULARY MEDICATION (Zinc Gluconate 50 mg tablet) PO SCH (09:00)
[2024-08-30] MEDS ORDERED: MECOBALAMIN 5000 MCG PO SCH (09:00)
[2024-08-30] MEDS: buPROPion XL 300 MG TABCR PO SCH (09:18)
[2024-08-30] MEDS: ARIPiprazole 5 MG TAB PO SCH (09:18)
[2024-08-30] MEDS: LINACLOTIDE 145 MCG CAPSULE PO SCH (09:18)
[2024-08-30] MEDS: amLODIPine BESYLATE 5 MG TAB PO SCH (09:18)
[2024-08-30] MEDS: LEVOTHYROXINE SODIUM 50 MCG TABLET PO SCH (09:18)
[2024-08-30] MEDS: CHOLECALCIFEROL 125 MCG (5,000 UNITS) TAB PO SCH (09:18)
--- NOTE | 2024-08-30 09:51 | Gastroenterology Progress Note ---
Date of Service August 30, 2024 Assessment & Plan (1) Bright red blood per rectum: (2) History of colon polyps: Plan Case discussed with Dr. Pires. Since no further bleeding, will start her on a soft diet and see how she does. would hold aspirin. will assess how she does with diet. Admission and Anticipated Discharge Date Admission Date: August 29, 2024 Supervising Physician Co-Signing Physician Notes I personally saw and examined the patient. I have reviewed the chart and agree with the documentation provided by the HANDBAG FRAMES INSPECTOR including discussion about the assessment, treatment and plan. Briefly, no further bleeding and feels much better today. Would hold off aspirin till she comes back from cruise. Her path showed a tubular adenoma. She feels better and safe for discharge today. Thank you for the hospitalist care. Subjective patient moved her bowels this morning without any bleeding. She tells me she has had no further bleeding since being inpatient. 08/30 hgb 11.3 (previously 12.1) rest of GI ros are unremarkable. Review of Systems Review of Systems: All systems reviewed & are unremarkable except as noted in HPI & below Physical Exam Constitutional: WD/WN, vitals as above Respiratory: normal respiratory effort, lungs clear to auscultation Cardiovascular: Rate/Rhythm: regular rate and regular rhythm Gastrointestinal (Abdomen): normal bowel sounds, soft, nontender, no hepatosplenomegaly Psychiatric: Orientation: alert and oriented x 3 Affect: euthymic affect Results & Data Results & Data Vital Signs (Past 12 Hours) Vital Signs Temp Pulse Resp BP Pulse Ox O2 Del Method 08/30/24 07:47 97.9 F 71 16 111/70 94 Room Air Coding Level of Care Code 38995 SUB INP/OBS CARE 07/16MIN Diagnoses Bright red blood per rectum K62.5 History of colon polyps Z86.0100
--- NOTE | 2024-08-30 14:32 | Discharge Summary ---
Discharge Summary Date of Service August 30, 2024 Principal Dx & Hospital Course #1 = Principal Diagnosis (1) Bright red blood per rectum: (2) S/P colonoscopic polypectomy: (3) Iron deficiency anemia: (4) Hypothyroidism: (5) Depression: (6) Raynaud disease: Plan 68-year-old female with PMH of prediabetes, hypothyroidism, migraine headaches, depression, PTSD, Raynaud's syndrome, vitamin D deficiency, iron deficiency anemia, restless leg syndrome, CVI, H/O DVT (on anticoagulation), osteoporosis. She presented after 3 episodes of what she describes as bright red blood per rectum/bloody diarrhea. She had a colonoscopy with polypectomy last week with a 20 mm ascending colon polyp removed by Dr. Allen. She initially presented to [facility], who discussed her case with [facility] who recommended observation at [facility] for potential repeat colonoscopy. Luckily, no further episodes of bleeding occurred and hemoglobin remained stable. #BRBPR / Post-polypectomy bleeding - Hgb at [facility] 12.3, hgb on admission here 12.1, repeat hgb stable at 11.3, asymptomatic - Bleeding appears to have resolved on its own, with no further signs of bleeding with BMs - Well-tolerated diet advancement - Recommend discontinuation of aspirin 81 mg daily #Depression / PTSD Chronic, stable Continue home meds #Hypothyroidism Chronic, stable Continue home meds #Raynaud's Disease Chronic, stable Amlodipine initially held to monitor hemodynamics -- stable, resumed on discharge Dispo: Discharged home 08/30. Recommend PCP follow-up in 1-2 weeks Notes For Next Care Provider Suspect bleeding was secondary to recent polypectomy during colonoscopy. This resolved on its own without further episodes of bleeding with bowel movements. Medication Changes From Visit Aspirin 81 mg daily discontinued Admission HPI Per Admitting Provider patient is a very pleasant 68-year-old female who had a colonoscopy/polypectomy last week. She was feeling fine, and then early this morning woke up with a feeling like she had a bowel movement urgently. Over the next short period of time she had 3 episodes of what she describes essentially bright red blood per rectum/bloody diarrhea. Given that it happened multiple times in a row she wondered if she was having of bleed at the site of her polypectomy, and proceeded to the ER. There she appeared to be overall stable, but given the recent polypectomy, lower GI bleedingCase was discussed with gastroenterology here who wanted her in our facility to monitor, with the plan of a repeat colonoscopy if the bleeding persists. Since then, she has not had any bloody diarrhea, did void on arrival here to this facility, and she noted whenever she wiped after voiding there was some blood on the toilet paper. She feels mildly lightheaded but no other symptoms. Discharge Exam General: No acute distress, nondiaphoretic, well-developed, well-nourished. Cardiac: Regular rate and rhythm without murmurs gallops or rubs. Pulm: Clear to auscultation bilaterally without wheezes, rales or rhonchi. Normal respiratory effort. 94% on room air. Abdominal: Soft, nontender, nondistended. Bowel sounds present. Abdominal: Positive bowel sounds x 4. Soft, nontender, without masses or organomegaly. No guarding or rebound tenderness. Neuro: A&O x3. No focal neurological deficits. Discharge Plan Discharge Items Patient Disposition: Home - Self-Care Reason For Visit: [facility] BLEEDING Discharge Diagnosis: Post-polypectomy rectal bleeding, now resolved Activity: Resume your previous activity Non-emergency contact: Primary Care Provider Call non-emergency contact if: you have any medication questions and your symptoms worsen Follow-up/Referrals: Queta Engel DO [Primary Care Provider] - 09/06/24 8:20 am (Hospital follow up on September 06 at 8:20 am.) Diet: Regular Addtl Attending Provider Instructions: Kristie, You were admitted to the hospital due to multiple episodes of bleeding with bowel movements. This resolved on its own fortunately. It is suspected this was from your recent polypectomy during your colonoscopy. Upon discharge from the hospital: * You can stop taking your aspirin. * Continue your other home medications as prescribed. * Follow a regular diet. * Follow-up with your PCP in 1-2 weeks. It was a pleasure taking care of you while you were in the hospital! Pending Studies at Discharge: No Stand-Alone Forms: My Tenebril, Smoking Cessation Medications and DC Order Prescriptions: Continued potassium chloride 10 mEq capsule, extended release 10 meq PO BID Qty: 200 3RF Linzess 290 mcg capsule 290 mcg PO DAILY Qty: 90 2RF levothyroxine 50 mcg tablet 50 mcg PO QAM Qty: 100 1RF aripiprazole [Abilify] 5 mg tablet 5 mg PO QAM Qty: 90 1RF sumatriptan succinate 100 mg tablet 100 mg PO Q2H PRN (Reason: migraine headache) Qty: 90 0RF Rx Instructions: do not exceed 2 doses per 24 hrs bupropion HCl 300 mg tablet extended release 24 hr 300 mg PO QAM Qty: 90 1RF venlafaxine [Effexor XR] 75 mg capsule,extended release 24hr 75 mg PO QAM Qty: 90 2RF gabapentin 100 mg capsule 400 mg PO HS PRN (Reason: restless leg(s)) Qty: 270 1RF furosemide 40 mg tablet 40 mg PO QAM Qty: 90 2RF mecobalamin (vitamin B12) 5,000 mcg tablet,chewable 5,000 mcg PO QAM multivitamin [Daily Multi-Vitamin] Tablet 1 tab PO QAM zoledronic qnax-yihvynos-lcsyo [Reclast] 5 mg/100 mL piggyback See Rx Instructions IV .every 12 mos Qty: 100 0RF Rx Instructions: 5mg intravenously EVERY 12 MOS; omega-3 fatty acids 1,000 mg capsule 1,000 mg PO QAM zinc gluconate 50 mg tablet 50 mg PO QAM cholecalciferol (vitamin D3) 125 mcg (5,000 unit) capsule 125 mcg PO DAILY magnesium oxide 400 mg magnesium tablet 400 mg PO QPM amlodipine 5 mg tablet 5 mg PO QAM riboflavin (vitamin B2) 400 mg tablet 400 mg PO QAM Discontinued aspirin 81 mg tablet,delayed release (DR/EC) 81 mg PO QAM Discharge Orders: Discharge Order (Routine); Ordered 08/30/24 Ordered By: Lucero Green Admission Data Admit Date/Time: 08/29/24 14:30 Attending Provider: Tyrell Kendall Admit Provider: Tyrell Kendall Primary Care Provider: Queta Engel Other Providers: Blaise Pires Other Interventions: Discharge Summary Assessment (RN) Last Done: 08/30/24 13:49 Hospital Stay Data Consultations 08/29/24 16:30 Consult Gastroenterology Routine Pending Results Patient Have Any Pending Studies at Discharge: No Discharge Instructions Given to Patient (Per Discharging Provider) Danny Flowers were admitted to the hospital due to multiple episodes of bleeding with bowel movements. This resolved on its own fortunately. It is suspected this was from your recent polypectomy during your colonoscopy. Upon discharge from the hospital: * You can stop taking your aspirin. * Continue your other home medications as prescribed. * Follow a regular diet. * Follow-up with your PCP in 1-2 weeks. It was a pleasure taking care of you while you were in the hospital! Supervising Physician Co-Signing Physician Notes I personally examined the patient and verified all craig points of history and exam, discussed case, and agree with decision making with Chandra Green PA-C feeling better no more bleeding would like to go home. discussed asa - no CAD/[place], no CVA/TIA. notes she takes it "for circulation" but describes more just ?venous stasis type changes - overtly denies ever being told of PAD in any way. batsheva noted nad heent nc at mmm breathing unlabored no accessory muscles good effort skin no rashes no pallor or icterus neuro no focal deficits post polypectomy bleed - fortunately resolved spontaneously. no significant blood loss. discussed asa - does not appear to have a clear need for it - would definitely have her stop for now given bleeding, d/w PCP to ensure no indications that she has that i/she would be unaware of, but most likely will be dc'ing asa indefinitely. safe/stable for home, otherwise as above Total Time Total Time Spent Total Time Spent (In Minutes): Greater than 30 minutes spent completing this discharge process including direct patient care, medication reconciliation, documentation, review of labs and images, and coordination of care. Coding Level of Care Code 11417 INP/OBS DISCH >30 MIN Diagnoses Bright red blood per rectum K62.5 S/P colonoscopic polypectomy Z98.890 Iron deficiency anemia D50.9 Hypothyroidism E03.9 Depression F32.9 Raynaud disease I73.00
== END 2024-08-30 14:09 | disposition home or self-care (01) ==
LOC: INTOOBSV 12:45 → 2S 12:45 → 3N 19:32

== ENCOUNTER 2024-09-21 07:46 | Observation (INO) ==
--- NOTE | 2024-08-23 11:27 | PAT Medication Instructions ---
Medication Instructions Date of Service August 23, 2024 Home Medications Medication Instructions Recorded zoledronic acid 5 mg/100 mL in See Rx Instructions IV .every 12 11/20/23 mannitol 5 %-water intravenous mos #100 mL piggybck (Reclast) potassium chloride 10 mEq 10 meq PO BID #200 caps 03/28/24 capsule,extended release linaclotide 290 mcg capsule 290 mcg PO DAILY #90 caps 03/31/24 (Linzess) levothyroxine 50 mcg tablet 50 mcg PO QAM #100 tabs 05/23/24 aripiprazole 5 mg tablet (Abilify) 5 mg PO QAM #90 tabs 06/02/24 sumatriptan succinate 100 mg tablet 100 mg PO Q2H PRN migraine 06/27/24 headache #90 tabs bupropion HCl 300 mg 24 hr tablet, 300 mg PO QAM #90 tabs 07/04/24 extended release venlafaxine 75 mg capsule,extended 75 mg PO QAM #90 caps 07/04/24 release 24 hr (Effexor XR) gabapentin 100 mg capsule 400 mg (4 x 100 mg) PO HS PRN 08/01/24 restless leg(s) #270 caps peg 3350-sod sulf,[id number] See Rx Instructions PO .COMPLEX #2 08/05/24 178.7-7.3-0.5-1.12-0.9 gram oral mL soln (Suflave) furosemide 40 mg tablet 40 mg PO QAM #90 tabs 08/08/24 cholecalciferol (vitamin D3) 125 mcg (5,000 unit) capsule 125 mcg PO DAILY magnesium oxide 400 mg PO QPM omega-3 fatty acids 1,000 mg capsule 1,000 mg PO QAM zinc gluconate 50 mg tablet 50 mg PO QAM aspirin 81 mg tablet,delayed release 81 mg PO QAM mecobalamin (vitamin B12) 5,000 mcg chewable tablet 5,000 mcg PO QAM multivitamin (Daily Multi-Vitamin tablet) 1 tab PO QAM zoledronic acid 5 mg/100 mL in mannitol 5 %-water intravenous piggybck (Reclast) See Rx Instructions IV .every 12 mos potassium chloride 10 mEq capsule,extended release 10 meq PO BID linaclotide 290 mcg capsule (Linzess) 290 mcg PO DAILY levothyroxine 50 mcg tablet 50 mcg PO QAM aripiprazole 5 mg tablet (Abilify) 5 mg PO QAM sumatriptan succinate 100 mg tablet 100 mg PO Q2H PRN migraine headache bupropion HCl 300 mg 24 hr tablet, extended release 300 mg PO QAM venlafaxine 75 mg capsule,extended release 24 hr (Effexor XR) 75 mg PO QAM gabapentin 100 mg capsule 400 mg (4 x 100 mg) PO HS PRN restless leg(s) furosemide 40 mg tablet 40 mg PO QAM amlodipine 5 mg tablet 5 mg PO QAM riboflavin (vitamin B2) 400 mg tablet 400 mg PO QAM ASK your prescriber and surgeon aspirin 81 mg tablet,delayed release 81 mg PO QAM zoledronic acid 5 mg/100 mL in mannitol 5 %-water intravenous piggybck (Reclast) See Rx Instructions IV .every 12 mos STOP taking 2 weeks before surgery (or as soon as possible if surgery is within 2 weeks) omega-3 fatty acids 1,000 mg capsule 1,000 mg PO QAM DO NOT take the morning of surgery cholecalciferol (vitamin D3) 125 mcg (5,000 unit) capsule 125 mcg PO DAILY zinc gluconate 50 mg tablet 50 mg PO QAM mecobalamin (vitamin B12) 5,000 mcg chewable tablet 5,000 mcg PO QAM multivitamin (Daily Multi-Vitamin tablet) 1 tab PO QAM potassium chloride 10 mEq capsule,extended release 10 meq PO BID linaclotide 290 mcg capsule (Linzess) 290 mcg PO DAILY furosemide 40 mg tablet 40 mg PO QAM riboflavin (vitamin B2) 400 mg tablet 400 mg PO QAM Take morning of surgery With a small sip of water, OTHERWISE NOTHING TO EAT OR DRINK AFTER MIDNIGHT: levothyroxine 50 mcg tablet 50 mcg PO QAM aripiprazole 5 mg tablet (Abilify) 5 mg PO QAM sumatriptan succinate 100 mg tablet 100 mg PO Q2H PRN migraine headache (if needed) bupropion HCl 300 mg 24 hr tablet, extended release 300 mg PO QAM venlafaxine 75 mg capsule,extended release 24 hr (Effexor XR) 75 mg PO QAM amlodipine 5 mg tablet 5 mg PO QAM Take evening before surgery magnesium oxide 400 mg PO QPM potassium chloride 10 mEq capsule,extended release 10 meq PO BID sumatriptan succinate 100 mg tablet 100 mg PO Q2H PRN migraine headache (if needed) gabapentin 100 mg capsule 400 mg (4 x 100 mg) PO HS PRN restless leg(s) (if needed) Other Notes If you have any questions please call us at [phone] or [phone] or [phone] or [phone]
--- NOTE | 2024-08-31 13:52 | Anesthesiology Consultation ---
Date of Service August 31, 2024 Assessment & Plan (1) Encounter for pre-operative examination: Chart Review Chart Review: Acceptable Risk for Surgery (pending PCP office visit 09/13/24) and Patient seen in Pre Admission Testing - Awaiting PCP clearance 09/13/24 ([place]) - Patient is NOT an ideal OPJ (currently 23 hour obs) Per PAT appt on 08/31/24, no recent illness/disease exposures, illness related symptoms, or recent illness/disease positive tests. Will leave to surgeon's discretion if preop Covid testing needed Teaching & Discussion Pre-Anesthesia Teaching/Discussion Notes: Instructed NPO after midnight before surgery,except medications with 15 cc of water. Medication instructions provided according to the PAT guidelines. History Surgery Operation Date: 09/21/24 09:35 Proposed Procedures p Left Shoulder Reverse Total Shoulder Arthroplasty, Debridement of Suture Material/Anchors - Liam Horvath MD Height/Weight Height: 5 ft 7 in Weight: 79.1 kg Allergies Allergy/AdvReac Type Severity Reaction Status Date / Time No Known Drug Allergies Allergy Verified 08/31/24 11:09 Medications Home Medications Medication Instructions Recorded Confirmed Last Taken cholecalciferol (vitamin D3) 125 125 mcg PO DAILY 10/31/21 08/31/24 08/29/24 07:00 mcg (5,000 unit) capsule magnesium oxide 400 mg PO QPM 10/31/21 08/31/24 08/28/24 21:00 omega-3 fatty acids 1,000 mg 1,000 mg PO QAM 10/31/21 08/31/24 08/29/24 07:00 capsule zinc gluconate 50 mg tablet 50 mg PO QAM 10/31/21 08/31/24 08/29/24 07:00 mecobalamin (vitamin B12) 5,000 5,000 mcg PO QAM 11/13/22 08/31/24 08/29/24 07:00 mcg chewable tablet multivitamin (Daily Multi-Vitamin 1 tab PO QAM 11/18/23 08/31/24 08/29/24 07:00 tablet) zoledronic acid 5 mg/100 mL in See Rx Instructions IV .every 11/20/23 08/31/24 04/26/24 mannitol 5 %-water intravenous mos #100 mL piggybck (Reclast) potassium chloride 10 mEq 10 meq PO BID #200 caps 03/28/24 08/31/24 08/29/24 07:00 capsule,extended release linaclotide 290 mcg capsule 290 mcg PO DAILY #90 caps 03/31/24 08/31/24 08/29/24 07:00 (Linzess) levothyroxine 50 mcg tablet 50 mcg PO QAM #100 tabs 05/23/24 08/31/24 08/29/24 07:00 aripiprazole 5 mg tablet (Abilify) 5 mg PO QAM #90 tabs 06/02/24 08/31/24 08/29/24 07:00 sumatriptan succinate 100 mg tablet 100 mg PO Q2H PRN migraine 06/27/24 08/31/24 08/26/24 10:00 headache #90 tabs bupropion HCl 300 mg 24 hr tablet, 300 mg PO QAM #90 tabs 07/04/24 08/31/24 08/29/24 07:00 extended release venlafaxine 75 mg capsule,extended 75 mg PO QAM #90 caps 07/04/24 08/31/24 08/29/24 07:00 release 24 hr (Effexor XR) gabapentin 100 mg capsule 400 mg (4 x 100 mg) PO HS PRN 08/01/24 08/31/24 08/28/24 21:00 restless leg(s) #270 caps furosemide 40 mg tablet 40 mg PO QAM #90 tabs 08/08/24 08/31/24 08/29/24 07:00 amlodipine 5 mg tablet 5 mg PO QAM 08/12/24 08/31/24 08/29/24 07:00 riboflavin (vitamin B2) 400 mg 400 mg PO QAM 08/12/24 08/31/24 08/29/24 07:00 tablet Past Medical History Medical History Anemia - gets iron infusions - usually gets every few months (will be getting prior to surgery) Bright red blood per rectum Had colonoscopy 08/23/24- had large polyp removed - developed bleeding 08/29/24- admitted to [facility] for observation - bleeding improved prior to discharge without intervention Chronic venous insufficiency No significant edema Depression History of deep vein thrombosis - after bilateral knee replacement 2017, treated with anticoagulants x 3 months then stopped - no subsequent surgeries (surgeon aware per patient) - was on ASA but d/c'ed after rectal bleeding 08/29/24 History of hypertension Diet controlled with gastric bypass and weight loss History of prediabetes patient states changed diet and lost weight, denies prediabetes Hypothyroidism 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- on gabpendtin Migraines Osteoarthritis Osteoporosis PTSD (post-traumatic stress disorder) Pulmonary nodule 3 mm right upper lobe pulmonary nodule per [address] Raynauds disease Thoracic aortic aneurysm Mild ectasia of the ascending thoracic aorta which measures 39 mm at the level of the main pulmonary artery per [address] Exercise / Class Metabolic Activity II 4-5 Yardwork/Stairs/Walk up hill (one flight of stairs - no chest pain or SOB ) Past Family History Family History Father Stroke, Onset Age: 57 Mother Asthma Hypertension Grandmother (Maternal) Leukemia Denies family history of Prostate cancer Breast cancer Colorectal cancer Past Surgical History Surgical History H/O foot surgery B/L BUNIONECTOMY History of gastric bypass 2002 History of hernia repair History of hysterectomy secondary to uterine prolapse; still w/ ovaries History of repair of rotator cuff RIGHT LEFT Hx of colonoscopy scheduled for 08/23/24 at [facility] Status post total bilateral knee replacement (08/2018) Past Anesthesia History No Hx of Anesthesia Complications and No Family Hx of Anesthesia Complications History of PONV No Hx of PONV and No Hx of Motion Sickness Social History Smoking Status: Never smoker Do You Dip or Chew Tobacco: No Hx Alcohol Use: Yes alcohol intake frequency: a few times a month Hx Substance Use: No substance use type: does not use Review of Systems - Very mild snoring - no hx of sleep study - Hx of blood transfusion with TKA in 2018 Patient denies chest pain, shortness of breath, dyspnea on exertion, reflux, cough, wheezing, palpitations. No hx of seizures, stroke, [place]. Physical Exam Vital Signs VITALS BP 105/69 P 98 TEMP 98.0 SP02 96% RESP 16 Constitutional no acute distress ENMT Mouth: no TMJ clicking Thyromental Distance: > or= 3.5 Finger Breadths (3.5) Mallampati Class: II Upper and lower partial dentures Neck neck extension not limited Respiratory normal respiratory effort; no respiratory distress Auscultation: lungs clear to auscultation bilaterally; no wheezes Cardiovascular Rate/Rhythm: regular rate and regular rhythm Heart Sounds: no murmur Vessels: no carotid bruit Musculoskeletal Spine: no pain with cervical ROM Extremities: extremities normal to inspection Psychiatric Orientation: alert Lab Results Anesthesia Preop Results Results Anesthesia Widget: WBC 7.70 K/ul (4.8-10.8) 08/31/24 Hgb 11.4 g/dl (12.0-16.0) L 08/31/24 Hct 34.9 % (37.0-47.0) L 08/31/24 Plt 266 K/uL (130-400) 08/31/24 Na 139 mmol/L (136-145) 08/29/24 K 3.9 mmol/L (3.5-5.1) 08/29/24 Cl 106 mmol/L (98-107) 08/29/24 CO2 27 mmol/L (21-32) 08/29/24 BUN 34 mg/dl (6-23) H 08/29/24 Creat 0.98 mg/dl (0.6-1.2) 08/29/24 Glucose Level 114 mg/dl (70-99(Fasting)) H 08/29/24 PT 10.9 Seconds (9.0-12.0) 08/31/24 PTT 29 Seconds (21-31) 08/31/24 INR 1.0 (0.9-1.1) 08/31/24 HA1c 5.5 % (4.5-5.6) 08/31/24 Urine Color Dark Yellow 08/31/24 Urine Appearance Clear (Clear) 08/31/24 Urine pH 5.5 (4.5-7.5) 08/31/24 Urine Specific [place] 1.013 (1.000-1.030) 08/31/24 Urine Protein Negative (Negative) 08/31/24 Urine Glucose (UA) Negative (Negative) 08/31/24 Urine Ketones Negative (Negative) 08/31/24 Urine Blood Negative (Negative) 08/31/24 Urine Nitrite Negative (Negative) 08/31/24 Urine Bilirubin Negative (Negative) 08/31/24 Urine Urobilinogen Negative (Negative) 08/31/24 Urine Leukocyte Esterase 1+ (Negative) H 08/31/24 Urine WBC (Auto) 11-20 /hpf (0-5) H 08/31/24 Urine RBC (Auto) 0-2 /hpf (0-2) 08/31/24 Urine Hyaline Casts (Auto) 0-2 /lpf (0-2) 08/31/24 Urine Epithelial Cells (Auto) 3-5 /hpf (0-2) H 08/31/24 Urine Bacteria (Auto) 1+ (None Seen) H 08/31/24 Blood Type O Positive 08/31/24 Antibody Screen NEGATIVE 08/31/24 Testing Laboratory Results Anemia mild- stable from Hgb day prior to 08/30/24 (no further rectal bleeding per patient at 08/31/24 PAT appt) 08/31/24= URINE CULTURE: Results pending (will leave to surgeon's discretion to review and determine how to proceed; surgeon's office informed ) Electrocardiogram Date: 08/31/24 Findings: + NSR @ (87bpm) Normal EKG per cardio Chest X-Ray Date: 08/31/24 Findings: + NAD Stress Test Date: 01/04/20 Resting EF: 55-60% Resting LV Function: normal No evidence of inducible ischemia at the workload achieved Mild concentric LVH. LV systolic function is normal Borderline left atrial enlargement. RVSP is normal. While patient did achieve target heart rate, the test was discontinued due to the dizziness. She achieved a low workload (3.9 METS achieved)
--- NOTE | 2024-09-17 10:40 | History & Physical Report ---
Date of Service September 17, 2024 Assessment & Plan (1) Rotator cuff tear arthropathy of left shoulder: Plan: Rotator cuff repair with rotator cuff arthropathy failed conservative management including injections. Proceed with reverse left total shoulder replacement. (2) History of failed repair of rotator cuff: History of Present Illness Chief Complaint: Chronic left shoulder pain Primary Care Provider: Queta Engel DO 68-year-old female with chronic left shoulder pain failed rotator cuff repair. 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 Patient denies headaches, sweats, fevers, chills, double vision, blurred vision, cough, sore throat, dysphagia, chest pain, sob at rest (some with running for example), wheezing, n/v/d/c, numbness, tingling, fatigue, urinary symptoms. ROS positive for posttraumatic stress disorder. Allergies Allergy/AdvReac Type Severity Reaction Status Date / Time No Known Drug Allergies Allergy Verified 09/13/24 14:33 Home Medications Medication Instructions Recorded Confirmed Type cholecalciferol (vitamin D3) 125 125 mcg PO DAILY 10/31/21 09/13/24 History mcg (5,000 unit) capsule magnesium oxide 400 mg PO QPM 10/31/21 09/13/24 History omega-3 fatty acids 1,000 mg 1,000 mg PO QAM 10/31/21 09/13/24 History capsule zinc gluconate 50 mg tablet 50 mg PO QAM 10/31/21 09/13/24 History mecobalamin (vitamin B12) 5,000 5,000 mcg PO QAM 11/13/22 09/13/24 History mcg chewable tablet multivitamin (Daily Multi-Vitamin 1 tab PO QAM 11/18/23 09/13/24 History tablet) zoledronic acid 5 mg/100 mL in See Rx Instructions IV .every 11/20/23 09/13/24 Rx mannitol 5 %-water intravenous mos #100 mL piggybck (Reclast) potassium chloride 10 mEq 10 meq PO BID #200 caps 03/28/24 09/13/24 Rx capsule,extended release linaclotide 290 mcg capsule 290 mcg PO DAILY #90 caps 03/31/24 09/13/24 Rx (Linzess) levothyroxine 50 mcg tablet 50 mcg PO QAM #100 tabs 05/23/24 09/13/24 Rx aripiprazole 5 mg tablet (Abilify) 5 mg PO QAM #90 tabs 06/02/24 09/13/24 Rx sumatriptan succinate 100 mg tablet 100 mg PO Q2H PRN migraine 06/27/24 09/13/24 Rx headache #90 tabs bupropion HCl 300 mg 24 hr tablet, 300 mg PO QAM #90 tabs 07/04/24 09/13/24 Rx extended release venlafaxine 75 mg capsule,extended 75 mg PO QAM #90 caps 07/04/24 09/13/24 Rx release 24 hr (Effexor XR) gabapentin 100 mg capsule 400 mg (4 x 100 mg) PO HS PRN 08/01/24 09/13/24 Rx restless leg(s) #270 caps furosemide 40 mg tablet 40 mg PO QAM #90 tabs 08/08/24 09/13/24 Rx amlodipine 5 mg tablet 5 mg PO QAM 08/12/24 09/13/24 History riboflavin (vitamin B2) 400 mg 400 mg PO QAM 08/12/24 09/13/24 History tablet Past Med/Surg History Problem List (Updated 09/17/24 @ 10:49 by Liam Horvath MD) History of failed repair of rotator cuff Rotator cuff tear arthropathy of left shoulder S/P colonoscopic polypectomy History of colon polyps Osteoporosis Idiopathic polyneuropathy Prediabetes Chronic venous insufficiency Iron deficiency anemia Vitamin D deficiency PTSD (post-traumatic stress disorder) History of deep vein thrombosis (08/2018) R peroneal vein post b/l knee replacement; treated anticoagulation x 3 mos History of gastric bypass (2001) Osteoarthritis Hypothyroidism Depression Migraine Raynaud disease Medical History Bright red blood per rectum Had colonoscopy 08/23/24- had large polyp removed - developed bleeding 08/29/24- admitted to [facility] for observation - bleeding improved prior to discharge without intervention Thoracic aortic aneurysm Mild ectasia of the ascending thoracic aorta which measures 39 mm at the level of the main pulmonary artery per [address] History of prediabetes patient states changed diet and lost weight, denies prediabetes History of deep vein thrombosis - after bilateral knee replacement 2017, treated with anticoagulants x 3 months then stopped - no subsequent surgeries (surgeon aware per patient) - was on ASA but d/c'ed after rectal bleeding 08/29/24 Hypothyroidism Depression Chronic venous insufficiency No significant edema Migraines PTSD (post-traumatic stress disorder) Osteoarthritis Osteoporosis 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- on gabpendtin Raynauds disease Pulmonary nodule 3 mm right upper lobe pulmonary nodule per [address] History of hypertension Diet controlled with gastric bypass and weight loss Anemia - gets iron infusions - usually gets every few months (will be getting prior to surgery) Surgical History Hx of colonoscopy scheduled for 08/23/24 at [facility] History of hernia repair History of gastric bypass 2002 Status post total bilateral knee replacement (08/2018) History of repair of rotator cuff RIGHT LEFT History of hysterectomy secondary to uterine prolapse; still w/ ovaries H/O foot surgery B/L BUNIONECTOMY Family History Father Stroke, Onset Age: 57 Mother Asthma Hypertension Grandmother (Maternal) Leukemia Denies family history of Prostate cancer Breast cancer Colorectal cancer Social History Smoking Status: Former smoker Tobacco Type: Cigarettes Age Started Using Tobacco: 19; Age Quit Using Tobacco: 22; packs per day: 0.15; Second Hand Exposure: No; Do You Dip or Chew Tobacco: No; Tobacco Cessation Education Requested by Patient: No Hx Alcohol Use: Yes Alcohol Intake Frequency: Monthly or Less Hx Substance Use: No Preferred Language: Japanese Communication Ability: Effective Visual Impairment: No Limitations Hearing Ability: Normal Hand Candy Dipper Required: No Beliefs That Will Affect Care: None marital status: Current Living Situation: Spouse Current Living Situation Comment: Spouse, son current occupational status: retired current occupation: prev [employer] How many Children do You have: 4 Other Information That Helps Us Care for You: No Feels Safe at Home: Yes Safety Concerns: Feels Safe At This Time Diet: regular Diet Comment: regular caffeine: Yes during the past year weight has: decreased > 10 lbs Dental Care, Regularly: Yes Physical Activity Frequency: Daily Seatbelt Use: always Sunscreen Use: Yes Assistive Devices: None Review of Systems All systems reviewed & are unremarkable except as noted in HPI & below Physical Exam Constitutional: WD/WN, vitals as above Respiratory: normal respiratory effort; no respiratory distress Cardiovascular: Rate/Rhythm: regular rate and regular rhythm Musculoskeletal: Painful range of motion left shoulder old surgical scars healed and benign. She has subacromial crepitation. There is positive Meneses and Neer cross-body signs with positive liftoff test abnormal external rotation and supraspinatus abduction strength as well. Still has good range of motion 170 degrees flexion 160 degrees abduction 80 degrees external rotation 90 degrees internal rotation. Distal neurological and circulation exam intact. Skin: no rashes, warm and dry Neurologic: normal touch/pain/proprioception Psychiatric: A+Ox3, euthymic affect Results & Data Diagnostic Findings Radiographs demonstrate in that left shoulder she has proximal migration humerus [id number] in the subacromial space. [place] 3 rotator cuff arthropathy with failed rotator cuff repair. MRI demonstrates failed rotator cuff repair retracted non repairable rotator cuff tissue likely biceps rupture.
[~2024-09-21 07:46] MED LIST changes: -ACETAMINOPHEN 500 MG TAB PO SCH; +BUPIVACAINE 0.5 % 5 MG/1 ML PF 10ML VIAL ONE; -CEFAZOLIN 2000MG 2,000 MG/15 ML SYR IV SCH; -CeleBREX 200 MG CAP PO SCH; -FAMOTIDINE 20 MG TAB PO SCH; -GABAPENTIN 300 MG x 2 PO SCH; -LR 15ML/HR IV SCH; -LR 500ML BOLUS, THEN 15ML/HR IV SCH; -METOCLOPRAMIDE HCL 10 MG TABLET PO SCH; -ROPIVACAINE 0.5% HCL/PF 150 MG, BUPIVACAINE 0.5% MPF 30 ML, EPINEPHrine 30MG/30ML (OR U... INFIL SCH; -TRANEXAMIC ACID 1,000 MG **IV Pre-op IV SCH; -dexAMETHasone 4 MG TAB PO SCH
[2024-09-21] MEDS ORDERED: DEXAMETHASONE SOD INJ 4 MG/ML VIAL ONE (08:09)
[2024-09-21] MEDS ORDERED: PROPOFOL IV EMULSION 10 MG/ML 20 ML VIAL IV ONE (08:09)
[2024-09-21] MEDS ORDERED: ONDANSETRON INJ 2 MG/ML 2 ML VIAL ONE (08:09)
[2024-09-21] MEDS ORDERED: MIDAZOLAM HCL 1 MG/ML 2ML VIAL ONE (08:09)
[2024-09-21] MEDS ORDERED: fentaNYL citrate PF 100 MCG/2 ML VIAL ONE (08:09)
[2024-09-21] MEDS ORDERED: SUGAMMADEX SODIUM 200 MG/2 ML VIAL IV ONE (08:10)
[2024-09-21] MEDS ORDERED: ROCURONIUM BROMIDE 10 MG/ML 5 ML VIAL IV ONE (08:11)
[2024-09-21] MEDS: LACTATED RINGER'S 1,000 ML IV SCH (08:13)
[2024-09-21] MEDS: METOCLOPRAMIDE HCL 10 MG TABLET PO SCH (08:14)
[2024-09-21] MEDS: LR 60ML/HR IV SCH (08:14)
[2024-09-21] MEDS: GABAPENTIN 300 MG CAP PO SCH (08:14)
[2024-09-21] MEDS: dexAMETHasone**PF** 10 MG/ML VIAL IV SCH (08:14)
[2024-09-21] MEDS: FAMOTIDINE 20 MG TAB PO SCH (08:14)
[2024-09-21] MEDS: ACETAMINOPHEN 500 MG TAB PO SCH ×2 (08:14→16:43)
[2024-09-21] MEDS: CeleBREX 200 MG CAP PO SCH (08:14)
[2024-09-21] MEDS ORDERED: PROMETHAZINE HCL 6.25 MG in SODIUM CHLORIDE 0.9% 50 ML IV PRN (09:31)
[2024-09-21] MEDS ORDERED: KETOROLAC 30 MG/ML VIAL IV PRN (09:31)
[2024-09-21] MEDS ORDERED: ONDANSETRON INJ 2 MG/ML 2 ML VIAL IV PRN ×2 (09:31→15:58)
[2024-09-21] MEDS ORDERED: ATROPINE SULFATE 0.1 MG/ML 10ML SYR IV PRN (09:31)
[2024-09-21] MEDS ORDERED: fentaNYL citrate PF 100 MCG/2 ML VIAL IV PRN (09:31)
[2024-09-21] MEDS: TRANEXAMIC ACID 1,000 MG **IV Pre-op IV SCH (09:47)
--- NOTE | 2024-09-21 09:54 | History & Physical Bridge Note ---
Date of Service September 21, 2024 History & Physical Bridge Note I have examined the patient, reviewed the History & Physical and in the interval since the performance of the History & Physical I have noted the following changes of clinical significance: no changes noted
[2024-09-21] MEDS: ceFAZolin 2000MG 2,000 MG/15 ML SYR IV SCH ×2 (10:01→18:11)
[2024-09-21] MEDS: TRANEXAMIC ACID 1,000 MG **IV Intra-op IV SCH (12:03)
--- NOTE | 2024-09-21 12:38 | Operative Report ---
Post Operative Report Pre & Post Diagnosis Operation Date: 09/21/24 09:45 Pre-Op Diagnosis: Left Shoulder Rotator Cuff Tear Arthropathy, failed rotator cuff repair. Post-Op Diagnosis: Left Shoulder Rotator Cuff Tear Arthropathy, failed rotator cuff repair I identified the patient and participated in the time-out.: Yes Procedure Operation Date: 09/21/24 09:45 Actual Procedures p Left Reverse Total Shoulder Arthroplasty, Debridement of Suture Material/Anchors(Left) - Liam Horvath MD Surgeon Liam Horvath MD Evaporative Cooler Installer Adrian JASON Estimated Blood Loss 50 Findings Consistent with Post-Op Diagnosis Specimens Humeral head Drains None Anesthesia Type General Regional Complications none Disposition Disposition: Recovery Room Indications 68-year-old female with chronic left shoulder pain failed conservative management history of prior rotator cuff repair which went on to a failed rotator cuff repair. She has tears of subscapularis supraspinatus with significant retraction and intra-articular biceps tendon absent from prior surgery or rupture. Patient has [id number] articulation between the greater tuberosity and the acromion process with proximal migration of the humerus. Description of Procedure The patient was taken to the operating room and anesthetized under regional block and general anesthetic. The patient was positioned on the operating table in a 30 beach chair position with a towel roll under the medial border of the left scapula. The arm was draped free to be able to manipulate the shoulder as needed. The left upper extremity was prepped and draped in usual sterile fashion. Exam demonstrated anterior superior subluxation of the humerus being prominent under the anterior acromion with full passive range of motion and a thin individual.. An anterior deltopectoral approach was performed. A longitudinal incision was made in the deltopectoral interval. The skin was incised sharply. Subcutaneous flaps were elevated off the fascia. The cephalic vein was dissected out and retracted lateral with the deltoid. The clavipectoral fascia was divided at the lateral margin of the conjoined tendon and extended up to the CA ligament. The following findings were noted: Was a bursal fluid collection in the subacromial bursa space and subdeltoid space and overlying the upper subscapularis tendon. This was dissected out and removed revealing a large rotator cuff tear of the upper subscapularis extending through the supraspinatus and anterior infraspinatus with intact teres minor posteriorly and some of the infraspinatus was still intact. There was old suture anchors and suture material from a previous rotator cuff repair some of which had failed. Intra-articular biceps was absent and the biceps tendon was scarred in the groove.. The upper centimeter of the pectoralis was released for inferior exposure. A self-retaining retractor was placed. The biceps tendon was tenodesed to the pectoralis tendon with #2 FiberWire sutures. This was performed to prevent any further retraction when some of the proximal biceps that level was resected for exposure. The subscapular muscle fibers were split longitudinally at the level of the circumflex vessels. The circumflex vessels were identified and tied off with silk ties and divided laterally. A Kitner elevator was used to free up the inferior fibers of the subscapularis off of the capsule. The axillary nerve was identified with a tug test and protected with a blunt Matilde retractor between the nerve and the capsule. The subscapularis tendon was then taken down off of the lesser tuberosity subperiosteally, the upper portion had partial tearing and was very thin in the lower portion of the subscapularis was good tendon tissue. A Vicryl traction suture was placed and a subperiosteal dissection was performed along the neck of the humerus as the arm was gradually externally rotated exposing the humeral head. The humeral head findings demonstrated moderate arthritic changes mainly superiorly and there are some inferior osteophytes as well.. retractors were readjusted and the inferior osteophytes were all resected using an artist chisel and a rongeur. A Carrillo elevator was used to assist in releasing the capsule of the neck of the humerus. The capsule was divided with Schilling scissors down to the glenoid released off the anterior glenoid and the rotator interval was released to meet the capsular release and a 360 release of the subscapularis was accomplished. This mobilized the subscapularis very well for repair at the end of the procedure. A Fukuda retractor was placed into the joint retracting the humeral head posterior. Glenoid findings demonstrated normal articular cartilage and labrum. The labrum was resected. an anterior- inferior and posterior inferior capsular release were performed with electrocautery and a Carrillo elevator on bone with the axillary nerve protected inferiorly by the retractor. Attention was then taken to the humeral preparation. The cutting guide was placed into the humeral head. It was positioned at 20 of retroversion. Oscillating saw was used to resect the hu meral head giving the cut above the level of the posterior rotator cuff insertion site. This cut went through some of the old anchors as anticipated and all the peek anchors and suture material that were in the area of the surgical site were removed prior to broaching. Rongeur was used. The humerus was then prepared for the stem. I used the ascend flex stem from [employer]. The sizing broaches were used followed by trial broaches up to a size 5B Long which had the appropriate fit and fill. The appropriate sized cut protector was placed. The humerus was then retracted posterior to the glenoid. The glenoid was sized for a 25 mm baseplate. The guide for the baseplate was positioned in a 10 inferior tilt and the central drill hole was made. The reamer for the 25 mm baseplate was used. The central drill was widened for the peg. The Tornier aequalis 25 mm standard post baseplate hydroxyapatite coated baseplate was impacted into position. Her bone quality was osteopenic but the implant held well. The base plate was transfixed with superior and inferior locking screws and anterior and posterior compression screws with stable fixation. The fan reamer was used for the 36 millimeter glenoid sphere. After irrigation the 36 mm centered glenoid sphere was impacted onto the baseplate and the security screw was tightened. Attention was taken back to the humerus. The cut protect or was removed and the +0 high offset humeral tray trial was assembled to the trial stem rotated appropriately to get bony coverage and then screwed in position. A trial reduction was performed. A +6/36 mm reversed flex trial insert demonstrated good stability and no shuck. The trials were removed. 3 drill holes are made into the harder bone in the bicipital groove area and 3 #5 FiberWire sutures were placed transosseously. The canal was irrigated with saline pulsatile solution. The final component was assembled. The final component was 5B Long ascend flex stem a single 2+0 high offset tray with a +6/36 mm reversed flex polyethylene insert. This was then impacted into the humerus with a tight press-fit. It was reduced to the glenoid sphere. Stability was verified. Subscapularis was repaired with the #5 FiberWire sutures using Maurilio-Bret suture technique. Lateral row soft tissue repair was performed with #2 FiberWire [id number] sutures. The pectoralis was repaired with #2 FiberWire [id number] sutures reinforcing the biceps tendon tenodesis. The arm was taken through a range of motion which demonstrated 170 degrees forward flexion 130 degrees abduction and 80 degrees external rotation without tension on repair. The implant was stable through the range of motion tested. The wound was copiously irrigated. The deltopectoral interval was closed with [id number] #1 Vicryl sutures. The subcutaneous tissues were closed with 2-0 Vicryl sutures. The skin was closed with surgical vee. Sterile dressings were applied and a shoulder immobilizer. Adrian JASON my physician assistant front end manager acted as international first officer throughout the procedure .He performed functions including patient positioning, arm positioning, prepping and draping, soft tissue retraction, instrument management, suture management and performed the subcutaneous and skin closure and will participate in the postoperative care of the patient. I attest to the content of the Intraoperative Record and any orders documented therein. Any exceptions are noted below.
--- NOTE | 2024-09-21 13:07 | Anesthesiology Progress Note ---
Date of Service September 21, 2024 Anesthesia Post Procedure Vital Signs Vital Signs: Temp Pulse Pulse Resp BP Pulse Ox O2 Del Method 09/21/24 13:00 86 14 126/79 93 Room Air 09/21/24 12:50 88 14 134/79 94 Oxymask 09/21/24 12:40 85 14 128/76 97 Oxymask 09/21/24 12:30 36 C L 93 H 14 131/86 94 Oxymask 09/21/24 08:09 36.7 C 79 20 120/68 100 Room Air O2 Flow Rate 09/21/24 13:00 09/21/24 12:50 2 09/21/24 12:40 6 09/21/24 12:30 6 09/21/24 08:09 Transfer of Care Handoff Completed per policy Notes Mental Status: alert / awake / arousable Patient Amnestic to Procedure: Yes Nausea / Vomiting: adequately controlled Pain: adequately controlled Airway Patency, RR, SpO2: stable & adequate BP & HR: stable & adequate Hydration State: stable & adequate Anesthetic Complications: no major complications apparent
--- NOTE | 2024-09-21 13:28 | XRay Report ---
XR shoulder LT min 2V routine CLINICAL HISTORY: Post shoulder surgery COMPARISON: None FINDINGS: 2 views of the left shoulder demonstrate a recent shoulder joint replacement with a revers e [id number] prosthesis. There is satisfactory positioning of the prosthetic components. While I believe the alignment is probably normal, there is no en face visualization of the prosthetic joint. Postsurgical soft tissue changes are noted. There is some discoid atelectasis at the left lung base. IMPRESSION: Status post left shoulder joint replacement surgery as described. ACT 112: Negative or not required by law. Electronically signed by: Rowena Cuenca M.D. 09/21/2024 1:27 PM
[2024-09-21] MEDS ORDERED: NALOXONE HCL 0.4 MG/1 ML VIAL/CARP IV PRN (15:58)
[2024-09-21] MEDS ORDERED: MAGNESIUM HYDROXIDE SUSP 30 ML UDC PO PRN (15:58)
[2024-09-21] MEDS ORDERED: bisacodyL 10 MG SUPP PR PRN (15:58)
[2024-09-21] MEDS ORDERED: HYDROmorphone INJ 0.5 MG/0.5 ML SYR IV PRN (15:58)
[2024-09-21] MEDS ORDERED: ZOLEDRONIC ACID 5 MG/100 ML VIAL IV SCH (15:58)
[2024-09-21] MEDS ORDERED: METOCLOPRAMIDE HCL INJ 5 MG/ML 2 ML VIAL IV PRN (15:58)
[2024-09-21] MEDS ORDERED: ALUMINUM/MAGNESIUM SUSP 30 ML UDC PO PRN (15:58)
[2024-09-21] MEDS ORDERED: GABAPENTIN 400 MG CAP PO PRN (15:58)
[2024-09-21] MEDS ORDERED: KETOROLAC TROMETHAMINE 15 MG/ML VIAL IV PRN (15:58)
[2024-09-21] MEDS ORDERED: diphenhydrAMINE Capsule 25 MG CAP PO PRN (15:58)
[2024-09-21] MEDS ORDERED: SUMAtriptan succinate 100 MG TAB PO PRN (15:58)
[2024-09-21] MEDS: BUPIVACAINE LIPOSOME 1.3% 133 MG/10 ML VIAL ONE (15:59)
[2024-09-21] MEDS: TRANEXAMIC ACID / 0.7% NACL 1,000 MG/100 ML BAG IV SCH (18:11)
[2024-09-21] MEDS: POTASSIUM CHLORIDE 10 MEQ TABCR PO SCH (21:51)
[2024-09-21] MEDS: SENNA 8.6 MG TAB PO SCH (21:51)
[2024-09-21] MEDS: DOCUSATE SODIUM 100 MG CAP PO SCH (21:52)
[2024-09-21] MEDS: MAGNESIUM OXIDE 400 MG TAB PO SCH (21:53)
[2024-09-21] MEDS: ASPIRIN 81 MG ECTAB PO SCH (21:55)
[2024-09-21 23:22] VITALS: O2SAT 96
[2024-09-22] MEDS: oxyCODONE HCL IR 5 MG TAB (IMMEDIATE RELEASE) PO PRN (04:12)
[2024-09-22] MEDS: LEVOTHYROXINE SODIUM 50 MCG TABLET PO SCH (05:33)
[2024-09-22 06:36] LABS: Basophils # (auto) 0.06 K/uL (0.00-0.20); Basophils % (auto) 0.6 %; Eosinophils # (auto) 0.17 K/uL (0.00-0.50); Eosinophils % (auto) 1.8 %; Hematocrit (blood only) 33.6 % (37.0-47.0); Immature Granulocytes # (auto) 0.04 K/uL (0.01-0.20); Immature Granulocytes % (auto) 0.4 %; Lymphocytes # (auto) 2.27 K/uL (1.20-3.40); Lymphocytes % (auto) 23.5 %; Mean Corpuscular Hemoglobin 30.9 pg (25.0-34.0); Mean Corpuscular Hgb Conc 32.7 g/dL (32.0-36.0); Mean Corpuscular Volume 94.4 fL (80.0-100.0); Mean Platelet Volume 10.6 fL (9.4-12.4); Monocytes # (auto) 1.07 K/uL (0.11-0.59); Monocytes % (auto) 11.1 %; Neutrophils # (auto) 6.07 K/uL (1.40-6.50); Neutrophils % (auto) 62.6 %; Platelet Count 261 K/uL (130-400); RDW Coefficient of Variation 13.6 % (11.5-14.5); RDW Standard Deviation 47.5 fL (36.4-46.3); Red Blood Count 3.56 M/uL (4.20-5.40); White Blood Count 9.68 K/ul (4.8-10.8)
[2024-09-22 07:19] VITALS: BP 115/78; PULSE 71; RESP 16; TEMP 97.3
[2024-09-22 08:06] LABS: Calcium 8.8 mg/dl (8.6-10.3); Potassium 4.2 mmol/L (3.5-5.1)
--- NOTE | 2024-09-22 08:06 | Orthopedic Progress Note ---
Date of Service September 22, 2024 Assessment & Plan (1) Rotator cuff tear arthropathy of left shoulder: Plan: Postop day 1 reverse shoulder replacement. Patient doing well. We are going to just have her do home exercises for 2 weeks and then start formal physical therapy afterwards. Will have OT PT instructor and typical limited exercises. Continue use of sling. Silverlon instructions. Staple removal 2 weeks in office. Rotator cuff repair with rotator cuff arthropathy failed conservative management including injections. Proceed with reverse left total shoulder replacement. (2) History of failed repair of rotator cuff: Admission and Anticipated Discharge Date Admission Date: September 21, 2024 Subjective Starting to feel little pain but managed with medicine Review of Systems Review of Systems: Feels well no chest pain shortness of breath Physical Exam Musculoskeletal: Dressing dry and intact left shoulder. No drainage. Nerve block not completely worn off but has reasonably good return of motor function at this point. Normal circulation pulse. Results & Data Vital Signs (Past 12 Hours) Vital Signs Temp Pulse Pulse Resp BP Pulse Ox O2 Del Method 09/22/24 07:18 36.3 C L 71 16 115/78 96 Room Air 09/22/24 03:00 36.5 C 74 18 125/80 96 Room Air 09/21/24 23:00 36.5 C 83 18 130/78 96 Room Air Diagnostic Findings Well aligned reverse total shoulder arthroplasty left shoulder
[2024-09-22 08:11] LABS: BUN Creatinine Ratio 22.3 (10-20); Creatinine Clr Calc Pharmacy 62.5 ml/min
[2024-09-22] MEDS ORDERED: NON-FORMULARY MEDICATION (Multivitamin [Daily Multi-Vitamin] tablet) PO SCH (09:00)
[2024-09-22] MEDS ORDERED: NON-FORMULARY MEDICATION (Riboflavin (Vitamin B2) 400 mg tablet) PO SCH (09:00)
[2024-09-22] MEDS: dexAMETHasone 10 MG in SYRINGE 0 ML IV SCH (09:44)
[2024-09-22] MEDS: CHOLECALCIFEROL 125 MCG (5,000 UNITS) TAB PO SCH (09:44)
[2024-09-22] MEDS: MULTIVITAMIN TAB PO SCH (09:44)
[2024-09-22] MEDS: buPROPion XL 300 MG TABCR PO SCH (09:45)
[2024-09-22] MEDS: CYANOCOBALAMIN (B-12) 2,500 MCG TABLET PO SCH (09:45)
[2024-09-22] MEDS: ARIPiprazole 5 MG TAB PO SCH (09:45)
[2024-09-22] MEDS: OMEGA-3 (PURIFIED FISH OIL) 1 GM CAP PO SCH (09:45)
[2024-09-22] MEDS: VENLAFAXINE HCL XR 75 MG CAPXR PO SCH (09:46)
[2024-09-22] MEDS: FUROSEMIDE 40 MG TAB PO SCH (09:46)
[2024-09-22] MEDS: amLODIPine BESYLATE 5 MG TAB PO SCH (09:47)
[2024-09-22] MEDS: LINACLOTIDE 145 MCG CAPSULE PO SCH (09:47)
[2024-09-22] MEDS: ZINC SULFATE 220 MG CAPSULE PO SCH (09:47)
--- NOTE | 2024-09-28 13:09 | Discharge Summary ---
Date of Service September 28, 2024 Admission HPI Per Admitting Provider 68-year-old female with chronic left shoulder pain failed rotator cuff repair. 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 Patient denies headaches, sweats, fevers, chills, double vision, blurred vision, cough, sore throat, dysphagia, chest pain, sob at rest (some with running for example), wheezing, n/v/d/c, numbness, tingling, fatigue, urinary symptoms. ROS positive for posttraumatic stress disorder. Principal Diagnosis left rotator cuff arthropathy Discharge Data Allergies Allergy/AdvReac Type Severity Reaction Status Date / Time No Known Drug Allergies Allergy Verified 09/21/24 08:05 Procedures Performed Operation Date: 09/21/24 09:45 Actual Procedures p Left Reverse Total Shoulder Arthroplasty, Debridement of Suture Material/Anchors(Left) - Liam Horvath MD Ordered Studies 09/21/24 05:00 US - OR guided needle placemen Routine Hospital Course (1) Rotator cuff tear arthropathy of left shoulder: Postop day 1 reverse shoulder replacement. Patient doing well. We are going to just have her do home exercises for 2 weeks and then start formal physical therapy afterwards. Will have OT PT instructor and typical limited exercises. Continue use of sling. Silverlon instructions. Staple removal 2 weeks in office. Rotator cuff repair with rotator cuff arthropathy failed conservative management including injections. Proceed with reverse left total shoulder replacement. Total Time Total Time Spent Total Time Spent (In Minutes): 20 Discharge Plan Discharge Items Patient Disposition: Home - Self-Care Reason For Visit: Left Shoulder Rotator Cuff Tear Arthropathy Discharge Diagnosis: Left shoulder osteoarthritis Activity: Per Instructions section Non-emergency contact: Primary Care Provider and Surgeon Call non-emergency contact if: your pain is not controlled, your pain is worsening and your temperature is above 101 Follow-up/Referrals: Queta Engel DO [Primary Care Provider] - Diet: Regular Addtl Attending Provider Instructions: ACTIVITY RECOMMENDATIONS: SELF CARE INSTRUCTIONS AFTER TOTAL SHOULDER ARTHROPLASTY REVERSE A. You may do daily exercises as taught in physical therapy while in hospital. No lifting with the operative arm. Formal physical therapy will start after your first post operative visit in 2 weeks. There is a physical therapy prescription and a home exercise sheet in your chart for discharge. B. You are to wear your sling/immobilizer at all times EXCEPT when performing your daily exercises and for hygiene purposes. C. You may perform dry, daily dressing changes. Please keep your incision covered. You may shower 48 hours after surgery. Do not apply soap or any ointment/lotions directly over incision. Do not soak incision in bath tub/swimming pool. D. You may use ice as needed to operative shoulder. E. You may resume previous diet. F. Silverlon: You have a Silverlon dressing on the incision. It will remain in place for 7 days from the day of your surgery. After 7 days, you may remove the dressing, just as you would remove a bandaid. You may shower with the Silverlon dressing in place. However, if you notice any water within the dressing, the dressing should be removed. You may cover the incision with a dry dressing once the silverlon is removed if there is any drainage. SPECIAL CARE INSTRUCTIONS: VERY IMPORTANT TO READ AND REVIEW A. There are a few signs you need to watch for after you are home. Call [facility] at [phone] if you experience any of the followin. Increased severe shoulder pain. Some pain is expected especially when you exercise. 2. Increased swelling in you shoulder or arm; pain or swelling in either upper extremity. 3. Any fluid drainage from the incision. 4. Shortness of breath or chest pain. B. Please call [facility] at [phone] if you have any questions or concerns about your operation or recovery. C. Call your physician if: 1. Temperature is greater than 101 degrees (F). 2. Pain is not relieved by prescribed pain medications. 3. Increase drainage or redness from incision. 4. Unanswered questions or concerns. FOLLOW UP VISIT: Please call [facility] at [phone] to schedule a follow up appointment with Dr. Horvath or his PA in 12-14 days from your surgery date. Pending Studies at Discharge: No Stand-Alone Forms: [employer], Smoking Cessation Medications and DC Order Prescriptions: New aspirin 81 mg tablet,delayed release (DR/EC) 81 mg PO BID Qty: 60 0RF celecoxib [Celebrex] 200 mg capsule 200 mg PO Q12H Qty: 60 0RF cefadroxil 500 mg capsule 500 mg PO Q12H Qty: 28 0RF oxycodone 5 mg tablet 5 mg PO Q4H PRN (Reason: pain) Qty: 20 0RF acetaminophen [Tylenol Extra Strength] 500 mg tablet 1,000 mg PO Q8H Qty: 90 0RF Continued potassium chloride 10 mEq capsule, extended release 10 meq PO BID Qty: 200 3RF Linzess 290 mcg capsule 290 mcg PO DAILY Qty: 90 2RF levothyroxine 50 mcg tablet 50 mcg PO QAM Qty: 100 1RF aripiprazole [Abilify] 5 mg tablet 5 mg PO QAM Qty: 90 1RF venlafaxine [Effexor XR] 75 mg capsule,extended release 24hr 75 mg PO QAM Qty: 90 2RF gabapentin 100 mg capsule 400 mg PO HS PRN (Reason: restless leg(s)) Qty: 270 1RF mecobalamin (vitamin B12) 5,000 mcg tablet,chewable 5,000 mcg PO QAM multivitamin [Daily Multi-Vitamin] Tablet 1 tab PO QAM zoledronic uxyf-vrrfmzqa-[id number] [Reclast] 5 mg/100 mL piggyback See Rx Instructions IV .every 12 mos Qty: 100 0RF Rx Instructions: 5mg intravenously EVERY 12 MOS; omega-3 fatty acids 1,000 mg capsule 1,000 mg PO QAM zinc gluconate 50 mg tablet 50 mg PO QAM cholecalciferol (vitamin D3) 125 mcg (5,000 unit) capsule 125 mcg PO DAILY magnesium oxide 400 mg magnesium tablet 400 mg PO QPM amlodipine 5 mg tablet 5 mg PO QAM riboflavin (vitamin B2) 400 mg tablet 400 mg PO QAM furosemide [Lasix] 40 mg tablet 40 mg PO QAM sumatriptan succinate [Imitrex] 100 mg tablet 100 mg PO Q2H PRN (Reason: migraine headache) Rx Instructions: do not exceed 2 doses per 24 hrs bupropion HCl [Wellbutrin XL] 300 mg tablet extended release 24 hr 300 mg PO QAM Discharge Orders: Discharge Order (Routine); Ordered 09/22/24 Ordered By: Liam Horvath Admission Data Admit Date/Time: 09/21/24 12:36 Attending Provider: Liam Horvath Admit Provider: Liam Horvath Primary Care Provider: Queta Engel Other Interventions: Discharge Summary Assessment (RN) Last Done: 09/22/24 09:00
== END 2024-09-22 11:30 | disposition home or self-care (01) ==
LOC: 3E 07:46 → ASU 07:46
DX: Z79.899 Other long term (current) drug therapy; M19.012 Primary osteoarthritis, left shoulder; R73.03 Prediabetes; Z79.890 Hormone replacement therapy; M12.812 Other specific arthropathies, not elsewhere classified, left shoulder; Z87.891 Personal history of nicotine dependence; I73.01 Raynaud's syndrome with gangrene; E11.40 Type 2 diabetes mellitus with diabetic neuropathy, unspecified; Z86.718 Personal history of other venous thrombosis and embolism